=== PATIENT | female | born 1990 | race American Indian/Alaskan Native ===

== ENCOUNTER 2016-06-24 22:26 | Emergency (ER) | payer MEDICAID, OTHER ==
[2016-06-25] MEDS ORDERED: BENADRYL IV ONE (01:04)
[2016-06-25] MEDS ORDERED: REGLAN IV ONE (01:04)
[2016-06-25] MEDS ORDERED: NACL 0.9% 1000 ML 1,000 ML IV ONE (01:04)
--- NOTE | 2016-06-25 01:34 | Emergency Department Report ---
ED Headache HPI - General Chief Complaint: Headache Stated Complaint: MIGRAINE Time Seen by Provider: 06/25/16 00:52 Source: patient, RN notes reviewed Exam Limitations: no limitations - History of Present Illness Initial Comments: This is a 26-year-old female that presents with headache 3 days. Patient agrees to history of migraines. Patient stated takes [id number] Excedrin Migraine with relief but this time there is no relief. Patient denies emesis. Patient denies nausea. Patient denies stiff neck. Patient denies fever or chills. Patient denies any head trauma. Patient describes it as pressure and throbbing in her frontal lobe. Patient rates pain a 9 out of 10. Patient stated that the lights makes the headache worse. Patient agrees to darkness relieving her headache. Patient stated is a gradual onset of headache. Denies thunderclap headache. Denies visual changes. Patient denies any drug allergies. Patient denies any past medical history. Quality: severe Head Injury Location: frontal Recent Head Trauma: chronic headaches Modifying Factors: improves with: exposure to light Associated Symptoms: denies symptoms. denies: confusion, fatigue, facial pain, fever/chills, flushing, loss of consciousness, nausea/vomiting, nasal congestion , nasal drainage, numbness in legs/feet, rash, seizures, sinus infection, stiff neck, vision changes, weakness Allergies/Adverse Reactions: Allergies No Known Allergies Allergy (Verified 11/15/13 05:59) Home Medications: Ambulatory Orders Ibuprofen [Motrin 800 MG tab] 800 mg PO Q8HR PRN #30 tablet 07/11/15 Methylergonovine [Methergine] 0.2 mg PO Q6HR #4 tablet 07/11/15 oxyCODONE /ACETAMINOPHEN [Percocet 5/325 mg] 1 - 2 tab PO Q4HR PRN #15 tablet Ibuprofen [Motrin 600 MG tab] 600 mg PO Q8H PRN 5 Days 06/25/16 ED Review of Systems ROS: Stated complaint: MIGRAINE Other details as noted in HPI Constitutional: denies: chills, fever Eyes: denies: eye pain, eye discharge, vision change ENT: denies: ear pain, throat pain Respiratory: denies: cough, shortness of breath, wheezing Cardiovascular: denies: chest pain, palpitations Endocrine: no symptoms reported Gastrointestinal: denies: abdominal pain, nausea, diarrhea Genitourinary: denies: urgency, dysuria, discharge Musculoskeletal: denies: back pain, joint swelling, arthralgia Skin: denies: rash, lesions Neurological: denies: headache, weakness, paresthesias Psychiatric: denies: anxiety, depression Hematological/Lymphatic: denies: easy bleeding, easy bruising ED Past Medical Hx - Past Medical History Previous Medical History?: Yes Hx Hypertension: No Hx Heart Attack/AMI: No Hx Liver Disease: No Hx Renal Disease: No Hx Headaches / Migraines: Yes Hx Seizures: No Hx Asthma: Yes (prn inhaler) Additional medical history: ANEMIA - Surgical History Past Surgical History?: Yes - Social History Smoking Status: Never Smoker Substance Use Type: None - Medications Home Medications: Home Medications Medication Instructions Recorded Confirmed Last Taken Type Ibuprofen [Motrin 800 MG tab] 800 mg PO Q8HR PRN #30 tablet 07/11/15 Unknown Rx Methylergonovine [Methergine] 0.2 mg PO Q6HR #4 tablet 07/11/15 Unknown Rx oxyCODONE /ACETAMINOPHEN [Percocet 1 - 2 tab PO Q4HR PRN #15 tablet 07/11/15 Unknown Rx 5/325 mg] Ibuprofen [Motrin 600 MG tab] 600 mg PO Q8H PRN 5 Days 06/25/16 Unknown Rx ED Physical Exam - General Limitations: No Limitations General appearance: alert, in no apparent distress - Head Head exam: Present: atraumatic, normocephalic - Eye Eye exam: Present: normal appearance, PERRL, EOMI Pupils: Present: normal accommodation - ENT ENT exam: Present: normal exam, normal orophraynx, mucous membranes moist, TM's normal bilaterally - Neck Neck exam: Present: normal inspection, full ROM. Absent: tenderness, lymphadenopathy - Respiratory Respiratory exam: Present: normal lung sounds bilaterally. Absent: respiratory distress, wheezes, rales, rhonchi, stridor - Cardiovascular Cardiovascular Exam: Present: regular rate, normal rhythm. Absent: systolic murmur, diastolic murmur, rubs, gallop - GI/Abdominal GI/Abdominal exam: Present: soft, normal bowel sounds. Absent: distended, tenderness, guarding, rebound, rigid - Extremities Exam Extremities exam: Present: normal inspection, full ROM, normal capillary refill. Absent: tenderness, pedal edema - Back Exam Back exam: Present: normal inspection, full ROM. Absent: tenderness, CVA tenderness (R), CVA tenderness (L) - Neurological Exam Neurological exam: Present: alert, oriented X3, CN II-XII intact, normal gait - Psychiatric Psychiatric exam: Present: normal affect, normal mood - Skin Skin exam: Present: warm, dry, intact, normal color. Absent: rash ED Course Vital Signs 06/24/16 22:58 Temperature 98.7 F Pulse Rate 91 H Respiratory 18 Rate Blood Pressure 144/101 O2 Sat by Pulse 100 Oximetry - Reevaluation(s) Reevaluation #1: 06/25/16 02:23 Patient stated her headache has subsided. Patient currently states her pain is a 0 out of 10 after medication prescribed. ED Medical Decision Making - Medical Decision Making Ed course: 26-year-old female presents with migraine headaches 1- patient received normal saline 1000 mL IV 2- patient received Reglan 10 mg and Benadryl 25 mg IV 3- I instructed the patient to follow-up with her primary care doctor/ neurologist in 3-5 days 4- I instructed if symptoms worsen such as nausea or vomiting, thunderclap headache, worsening of headache, vision changes, loss of consciousness, or worsening of the headache to report back to emergency room. 5- at the time of discharge the patient does not seem toxic or ill in appearance. Patient agrees to treatment plan and discharge plan. No further questions noted by the patient. 6- patient received a Proventil 600 mg at a time of discharge. Critical care attestation.: If time is entered above; I have spent that time in minutes in the direct care of this critically ill patient, excluding procedure time. ED Disposition Clinical Impression: Migraine Qualifiers: Migraine type: unspecified Status migrainosus presence: without status migrainosus Intractability: not intractable Qualified Code(s): G43.909 - Migraine, unspecified, not intractable, without status migrainosus Disposition: DISCHARGED TO HOME OR SELFCARE Is pt being admited?: No Does the pt Need Aspirin: No Condition: Stable Instructions: Ibuprofen (By mouth), Migraine Headache (ED) Additional Instructions: Follow-up with her primary care doctor/neurologist in 3-5 days if symptoms worsen such as nausea or vomiting, thunderclap headache, worsening of headache, vision changes, loss of consciousness, or worsening of the headache to report back to emergency room. Take ibuprofen 600 mg as prescribed as needed Prescriptions: Ibuprofen [Motrin 600 MG tab] 600 mg PO Q8H PRN 5 Days PRN Reason: Pain Referrals: REN ARMENTA MD [Primary Care Provider] - 3-5 Days [facility] [Outside] - 3-5 Days [facility] [Outside] - 3-5 Days Forms: Work/School Release Form(ED)
[2016-06-25 02:34] VITALS: BP 114/81
== END 2016-06-25 02:35 | disposition home or self-care (01) ==
LOC: ED 22:26
DX: G43.909 Migraine, unspecified, not intractable, without status migrainosus (principal); J45.909 Unspecified asthma, uncomplicated
CPT/HCPCS: 96361; 96374; 96375; 99282; J1200; J2765; J7030

== ENCOUNTER 2020-04-17 20:36 | Outpatient (CLI) | payer OTHER, MEDICAID ==
[2020-04-17] MEDS ORDERED: LACTATED RINGERS 1,000 ML IV ONE (21:24)
[2020-04-17 21:48] LABS: Bilirubin,Urine NEG (Negative); Blood,Urine NEG (Negative); Calcium Oxalate Crystals,Urine 1+; Color,Urine Yellow (Yellow); Mucus,Urine 1+ /HPF; Protein,Urine <15 mg/dL mg/dL (Negative)
[2020-04-17 23:14] VITALS: BP 133/73
== END 2020-04-17 23:35 | disposition home or self-care (01) ==
LOC: TRG 20:36 → APU 20:38 → TRG 23:35
PROVIDERS: ATTEND Obstetrics & Gynecology
DX: O26.892 Other specified pregnancy related conditions, second trimester (principal); Z3A.34 34 weeks gestation of pregnancy
CPT/HCPCS: 36415; 59025; 81001; 82731

== ENCOUNTER 2020-04-19 17:42 | Outpatient (CLI) | payer OTHER, MEDICAID ==
[2020-04-19 18:19] VITALS: BP 139/69
[2020-04-19 20:00] LABS: Bilirubin,Urine NEG (Negative); Blood,Urine NEG (Negative); Calcium Oxalate Crystals,Urine FEW; Color,Urine Yellow (Yellow); Mucus,Urine 3+ /HPF; Urobilinogen,Urine < 2.0 mg/dL (<2.0)
--- NOTE | 2020-04-19 20:05 | Ultrasound Report ---
Limited OB ultrasound INDICATION: , evaluate cervix length FINDINGS: Limited imaging was performed to evaluate cervical length. Cervix measures approximately 3.8 cm. IMPRESSION: Cervix measures approximately 3.8 cm. Signer Name: Finesse Valenzuela MD Signed: 04/19/2020 8:01 PM Workstation Name: [id number]
[2020-04-19] MEDS ORDERED: LACTATED RINGERS 1,000 ML IV ONE (20:12)
== END 2020-04-19 20:35 | disposition home or self-care (01) ==
LOC: TRG 17:42 → APU 17:43 → TRG 20:35
PROVIDERS: ATTEND Obstetrics & Gynecology
DX: O47.02 False labor before 37 completed weeks of gestation, second trimester (principal); Z3A.24 24 weeks gestation of pregnancy
CPT/HCPCS: 59025; 76815; 81001; 87086; Q0177

== ENCOUNTER 2020-06-25 18:10 | Outpatient (CLI) | payer OTHER, MEDICAID ==
[2020-06-25 20:54] VITALS: BP 130/71
--- NOTE | 2020-06-25 21:24 | Ultrasound Report ---
ULTRASOUND BIOPHYSICAL PROFILE INDICATION / CLINICAL INFORMATION: bpp. Clinical Gestational Age (GA): 33.6 weeks.days COMPARISON: 04/19/2020 FINDINGS: BREATHING MOVEMENT = 2 GROSS BODY MOVEMENT = 2 TONE = 2 QUALITATIVE AMNIOTIC FLUID VOLUME = 2 TOTAL BIOPHYSICAL SCORE = 8/8 HEART RATE (beats per minute): 132 AMNIOTIC FLUID: Subjectively normal. PRESENTATION: Cephalic. ADDITIONAL FINDINGS: None. IMPRESSION: 1. Biophysical Score = 8/8 Signer Name: J Luis Shaw MD Signed: 06/25/2020 9:20 PM Workstation Name: [id number]
== END 2020-06-25 21:25 | disposition home or self-care (01) ==
LOC: TRG 18:10 → APU 18:10 → TRG 21:25
PROVIDERS: ATTEND Obstetrics & Gynecology
DX: Z34.93 Encounter for supervision of normal pregnancy, unspecified, third trimester (principal); Z3A.33 33 weeks gestation of pregnancy
CPT/HCPCS: 59025; 76819

== ENCOUNTER 2020-06-28 13:41 | Inpatient (IN) | payer OTHER, MEDICAID ==
[2020-06-28] MEDS ORDERED: diphenhydrAMINE 25 MG CAP PO PRN (14:15)
[2020-06-28] MEDS ORDERED: WITCH HAZEL/ GLYCERIN PAD TP PRN (14:15)
[2020-06-28] MEDS ORDERED: DOCUSATE SODIUM 100 MG CAP PO PRN (14:15)
[2020-06-28] MEDS ORDERED: ACETAMINOPHEN 325 MG TAB PO PRN (14:15)
[2020-06-28] MEDS ORDERED: LACTATED RINGERS 1,000 ML IV SCH (14:15)
[2020-06-28] MEDS ORDERED: MAGNESIUM SULFATE 4 GM/100 ML BAG IV ONE (14:15)
[2020-06-28] MEDS ORDERED: ONDANSETRON 4 MG/2 ML INJ IV PRN (14:15)
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
[2020-06-28] MEDS: BETAMET ACET/BETAMET NA PH 6 MG/ML INJ 5 ML MDV IM SCH (14:56)
[2020-06-28] MEDS ORDERED: MAGNESIUM SULFATE 40GM/1000ML 40 GM/1,000 ML BAG IV SCH (15:00)
[2020-06-28 17:58] LABS: Basophils % (Auto) 0.4 % (0.0-1.8); Eosinophils % (Auto) 0.3 % (0.0-4.3); Hematocrit 30.2 % (30.3-42.9); Hemoglobin 9.8 gm/dl (10.1-14.3); Lymphocytes # (Auto) 1.6 K/mm3 (1.2-5.4); Lymphocytes % (Auto) 14.5 % (13.4-35.0); Mean Corpuscular HGB Conc 32 % (30-34); Mean Corpuscular Volume 75 fl (79-97); Monocytes # (Auto) 0.6 K/mm3 (0.0-0.8); Monocytes % (Auto) 5.5 % (0.0-7.3); Platelet Count 122 K/mm3 (140-440); Red Blood Count 4.02 M/mm3 (3.65-5.03)
[2020-06-28 18:19] LABS: Bacteria,Urine 1+ /HPF (Negative); Bilirubin,Urine NEG (Negative); Blood,Urine NEG (Negative); Color,Urine Yellow (Yellow); Mucus,Urine FEW /HPF; Protein,Urine <15 mg/dL mg/dL (Negative); Urobilinogen,Urine < 2.0 mg/dL (<2.0)
[2020-06-28 18:23] LABS: Alanine Aminotransferase 12 units/L (7-56); Alanine Aminotransferase 13 units/L (7-56); Albumin 3.7 g/dL (3.9-5); Blood Urea Nitrogen 4 mg/dL (7-17); Calcium 9.1 mg/dL (8.4-10.2); Hemolysis Index 63; Uric Acid 3.5 mg/dL (3.5-7.6)
[2020-06-28 18:33] LABS: BUN/Creatinine Ratio 10
[2020-06-29] MEDS: LACTATED RINGERS 1,000 ML IV SCH ×3 (03:38→22:08)
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
[2020-06-29] MEDS: PRENATAL VIT27-FE FUMARATE-FOLIC ACID VIT TAB PO SCH (09:20)
[2020-06-29] MEDS: BETAMET ACET/BETAMET NA PH 6 MG/ML INJ 5 ML MDV IM SCH (14:59)
--- NOTE | 2020-06-30 08:54 | Progress Note ---
Subjective - Subjective Date of service: 06/30/20 Principal diagnosis: IUP@34w4d; gestational hypertension; MGSO4 off; BMZ given x2 doses Interval history: Pt is without complaints. Denies SAMAYOA,vision changes, and pain. [facility] desires discharge home. Patient reports: movement normal, no new complaints, no loss of fluid, no vaginal bleeding, no contractions Objective - Vital Signs Vital Signs: Vital Signs - 12hr 06/29/20 06/29/20 06/29/20 20:52 20:54 20:59 Temperature Pulse Rate 107 H 111 H 114 H Respiratory Rate Blood Pressure Blood Pressure [Right] O2 Sat by Pulse 89 98 98 Oximetry 06/29/20 06/29/20 06/29/20 21:01 21:04 21:09 Temperature Pulse Rate 107 H 108 H 104 H Respiratory Rate Blood Pressure 135/74 Blood Pressure [Right] O2 Sat by Pulse 97 96 Oximetry 06/29/20 06/29/20 06/29/20 21:15 21:20 21:25 Temperature Pulse Rate 104 H 102 H 102 H Respiratory Rate Blood Pressure Blood Pressure [Right] O2 Sat by Pulse 93 97 96 Oximetry 06/29/20 06/29/20 06/29/20 21:27 21:30 21:31 Temperature Pulse Rate 103 H 111 H 110 H Respiratory Rate Blood Pressure 120/64 Blood Pressure [Right] O2 Sat by Pulse 94 96 Oximetry 06/29/20 06/29/20 06/29/20 21:35 21:36 21:40 Temperature Pulse Rate 113 H 110 H 109 H Respiratory Rate Blood Pressure Blood Pressure [Right] O2 Sat by Pulse 96 93 95 Oximetry 06/29/20 06/29/20 06/29/20 21:41 21:45 21:50 Temperature Pulse Rate 109 H 109 H 105 H Respiratory Rate Blood Pressure Blood Pressure [Right] O2 Sat by Pulse 94 94 94 Oximetry 06/29/20 06/29/20 06/29/20 21:55 22:00 22:01 Temperature Pulse Rate 108 H 106 H 105 H Respiratory Rate Blood Pressure 139/66 Blood Pressure [Right] O2 Sat by Pulse 96 95 Oximetry 06/29/20 06/29/20 06/29/20 22:02 22:05 22:08 Temperature Pulse Rate 112 H 110 H 105 H Respiratory Rate Blood Pressure Blood Pressure [Right] O2 Sat by Pulse 92 96 94 Oximetry 06/29/20 06/29/20 06/29/20 22:10 22:15 22:16 Temperature Pulse Rate 100 H 100 H 103 H Respiratory Rate Blood Pressure Blood Pressure [Right] O2 Sat by Pulse 94 95 89 Oximetry 06/29/20 06/29/20 06/29/20 22:20 22:24 22:25 Temperature Pulse Rate 100 H 102 H 99 H Respiratory Rate Blood Pressure Blood Pressure [Right] O2 Sat by Pulse 95 94 95 Oximetry 06/29/20 06/29/20 06/29/20 22:30 22:31 22:35 Temperature Pulse Rate 103 H 103 H 102 H Respiratory Rate Blood Pressure 117/57 Blood Pressure [Right] O2 Sat by Pulse 95 94 95 Oximetry 06/29/20 06/29/20 06/29/20 22:37 22:40 22:45 Temperature Pulse Rate 107 H 104 H 105 H Respiratory Rate Blood Pressure Blood Pressure [Right] O2 Sat by Pulse 94 96 96 Oximetry 06/29/20 06/29/20 06/29/20 22:50 22:55 22:56 Temperature Pulse Rate 107 H 103 H 102 H Respiratory Rate Blood Pressure Blood Pressure [Right] O2 Sat by Pulse 90 95 94 Oximetry 06/29/20 06/29/20 06/29/20 23:00 23:01 23:02 Temperature Pulse Rate 103 H 101 H 99 H Respiratory Rate Blood Pressure 116/56 Blood Pressure [Right] O2 Sat by Pulse 94 94 Oximetry 06/29/20 06/29/20 06/29/20 23:05 23:08 23:10 Temperature Pulse Rate 98 H 103 H 102 H Respiratory Rate Blood Pressure Blood Pressure [Right] O2 Sat by Pulse 96 93 94 Oximetry 06/29/20 06/29/20 06/29/20 23:15 23:20 23:22 Temperature Pulse Rate 105 H 103 H 103 H Respiratory Rate Blood Pressure Blood Pressure [Right] O2 Sat by Pulse 93 94 94 Oximetry 06/29/20 06/29/20 06/29/20 23:25 23:28 23:30 Temperature Pulse Rate 101 H 101 H 99 H Respiratory Rate Blood Pressure Blood Pressure [Right] O2 Sat by Pulse 95 94 94 Oximetry 06/29/20 06/29/20 06/29/20 23:31 23:33 23:35 Temperature Pulse Rate 101 H 101 H 101 H Respiratory Rate Blood Pressure 122/58 Blood Pressure [Right] O2 Sat by Pulse 94 94 Oximetry 06/29/20 06/29/20 06/29/20 23:40 23:45 23:47 Temperature Pulse Rate 102 H 102 H 104 H Respiratory Rate Blood Pressure Blood Pressure [Right] O2 Sat by Pulse 95 94 94 Oximetry 06/29/20 06/29/20 06/30/20 23:50 23:55 00:00 Temperature Pulse Rate 98 H 103 H 101 H Respiratory Rate Blood Pressure 113/53 Blood Pressure [Right] O2 Sat by Pulse 95 95 96 Oximetry 06/30/20 06/30/20 06/30/20 00:01 00:05 00:10 Temperature Pulse Rate 98 H 96 H 100 H Respiratory Rate Blood Pressure Blood Pressure [Right] O2 Sat by Pulse 94 96 96 Oximetry 06/30/20 06/30/20 06/30/20 00:12 00:15 00:20 Temperature Pulse Rate 100 H 97 H 99 H Respiratory Rate Blood Pressure Blood Pressure [Right] O2 Sat by Pulse 94 95 95 Oximetry 06/30/20 06/30/20 06/30/20 00:25 00:30 00:35 Temperature Pulse Rate 97 H 98 H 99 H Respiratory Rate Blood Pressure 116/56 Blood Pressure [Right] O2 Sat by Pulse 95 95 96 Oximetry 06/30/20 06/30/20 06/30/20 00:40 00:45 00:47 Temperature Pulse Rate 97 H 100 H 99 H Respiratory Rate Blood Pressure Blood Pressure [Right] O2 Sat by Pulse 95 95 93 Oximetry 06/30/20 06/30/20 06/30/20 00:50 00:54 00:55 Temperature Pulse Rate 96 H 94 H 96 H Respiratory Rate Blood Pressure Blood Pressure [Right] O2 Sat by Pulse 95 94 95 Oximetry 06/30/20 06/30/20 06/30/20 01:00 01:02 01:05 Temperature Pulse Rate 95 H 92 H 96 H Respiratory Rate Blood Pressure 111/53 Blood Pressure [Right] O2 Sat by Pulse 96 95 Oximetry 06/30/20 06/30/20 06/30/20 01:10 01:15 01:17 Temperature Pulse Rate 95 H 98 H 96 H Respiratory Rate Blood Pressure Blood Pressure [Right] O2 Sat by Pulse 95 95 94 Oximetry 06/30/20 06/30/20 06/30/20 01:20 01:25 01:30 Temperature Pulse Rate 99 H 98 H 97 H Respiratory Rate Blood Pressure 111/54 Blood Pressure [Right] O2 Sat by Pulse 95 95 94 Oximetry 06/30/20 06/30/20 06/30/20 01:35 01:40 01:44 Temperature Pulse Rate 91 H 93 H 94 H Respiratory Rate Blood Pressure Blood Pressure [Right] O2 Sat by Pulse 94 96 94 Oximetry 06/30/20 06/30/20 06/30/20 01:45 01:50 01:55 Temperature Pulse Rate 94 H 97 H 87 Respiratory Rate Blood Pressure Blood Pressure [Right] O2 Sat by Pulse 94 94 94 Oximetry 06/30/20 06/30/20 06/30/20 01:56 02:00 02:05 Temperature Pulse Rate 85 96 H 98 H Respiratory Rate Blood Pressure 99/48 Blood Pressure [Right] O2 Sat by Pulse 94 96 96 Oximetry 06/30/20 06/30/20 06/30/20 02:10 02:15 02:20 Temperature Pulse Rate 90 90 91 H Respiratory Rate Blood Pressure Blood Pressure [Right] O2 Sat by Pulse 98 98 98 Oximetry 06/30/20 06/30/20 06/30/20 02:25 02:30 02:31 Temperature Pulse Rate 91 H 90 92 H Respiratory Rate Blood Pressure 97/51 Blood Pressure [Right] O2 Sat by Pulse 98 98 Oximetry 06/30/20 06/30/20 06/30/20 02:35 02:40 02:45 Temperature Pulse Rate 90 88 89 Respiratory Rate Blood Pressure Blood Pressure [Right] O2 Sat by Pulse 96 96 96 Oximetry 06/30/20 06/30/20 06/30/20 02:50 02:52 02:55 Temperature Pulse Rate 98 H 95 H 96 H Respiratory Rate Blood Pressure Blood Pressure [Right] O2 Sat by Pulse 95 94 97 Oximetry 06/30/20 06/30/20 06/30/20 02:58 03:00 03:05 Temperature Pulse Rate 95 H 95 H 95 H Respiratory Rate Blood Pressure 107/63 Blood Pressure [Right] O2 Sat by Pulse 94 98 96 Oximetry 06/30/20 06/30/20 06/30/20 03:10 03:15 03:20 Temperature Pulse Rate 96 H 92 H 90 Respiratory Rate Blood Pressure Blood Pressure [Right] O2 Sat by Pulse 95 96 96 Oximetry 06/30/20 06/30/20 06/30/20 03:24 03:25 03:30 Temperature Pulse Rate 105 H 90 90 Respiratory Rate Blood Pressure Blood Pressure [Right] O2 Sat by Pulse 94 97 97 Oximetry 06/30/20 06/30/20 06/30/20 03:31 03:35 03:40 Temperature Pulse Rate 88 88 88 Respiratory Rate Blood Pressure 80/41 Blood Pressure [Right] O2 Sat by Pulse 97 96 Oximetry 06/30/20 06/30/20 06/30/20 03:52 04:00 04:30 Temperature Pulse Rate 97 H 91 H 90 Respiratory Rate Blood Pressure 124/61 120/56 115/58 Blood Pressure [Right] O2 Sat by Pulse Oximetry 06/30/20 06/30/20 06/30/20 05:00 05:30 06:00 Temperature Pulse Rate 95 H 96 H 97 H Respiratory Rate Blood Pressure 116/56 120/56 114/58 Blood Pressure [Right] O2 Sat by Pulse Oximetry 06/30/20 06/30/20 06/30/20 06:31 07:00 07:13 Temperature Pulse Rate 98 H 88 96 H Respiratory Rate Blood Pressure 113/55 121/57 115/56 Blood Pressure [Right] O2 Sat by Pulse Oximetry 06/30/20 06/30/20 06/30/20 07:14 07:30 08:00 Temperature 98.1 F Pulse Rate 96 H 89 90 Respiratory 18 Rate Blood Pressure 108/56 103/50 Blood Pressure 115/56 [Right] O2 Sat by Pulse Oximetry 06/30/20 08:32 Temperature Pulse Rate 96 H Respiratory Rate Blood Pressure 103/54 Blood Pressure [Right] O2 Sat by Pulse Oximetry - Exam Lungs: Normal air movement Abdomen: Present: normal appearance, soft Uterus: Present: normal FHR: auscultation normal Uterine Contraction Monitor Mode: External Extremities: normal - Labs Labs: Abnormal Labs 06/28/20 06/28/20 06/28/20 19:50 Unknown Unknown Hgb 9.8 L Hct 30.2 L MCV 75 L MCH 24 L RDW 17.0 H Plt Count 122 L Seg Neutrophils % 79.3 H Seg Neutrophils # 8.7 H Sodium Chloride BUN Creatinine Magnesium 3.00 H Albumin U Epithel Cells (Auto) 20.0 H 06/28/20 06/28/20 06/29/20 Unknown Unknown 02:21 Hgb Hct MCV MCH RDW Plt Count Seg Neutrophils % Seg Neutrophils # Sodium 132 L Chloride 97.3 L BUN 4 L Creatinine 0.4 L 0.4 L Magnesium 3.10 H Albumin 3.7 L U Epithel Cells (Auto) 06/29/20 06/29/20 06/29/20 08:11 15:35 22:34 Hgb Hct MCV MCH RDW Plt Count Seg Neutrophils % Seg Neutrophils # Sodium Chloride BUN Creatinine Magnesium 3.00 H 3.00 H 3.20 H Albumin U Epithel Cells (Auto) Laboratory Results - last 24 hr 06/29/20 06/29/20 15:35 22:34 Magnesium 3.00 H 3.20 H
[2020-06-30] MEDS: PRENATAL VIT27-FE FUMARATE-FOLIC ACID VIT TAB PO SCH (10:56)
[2020-06-30] MEDS: LACTATED RINGERS 1,000 ML IV SCH (11:49)
--- NOTE | 2020-06-30 12:58 | Discharge Summary ---
Providers - Providers Date of Admission: 06/28/20 13:42 Date of discharge: 06/30/20 Attending physician: EVELIA AGUILAR 06/28/20 15:33 Consult to Physician [CONS] Routine Comment: Consulting Provider: SVITLANA RAHMAN Physician Instructions: Reason For Exam: admission to [facility]U; proteinuria; Primary care physician: EVELIA AGUILAR Hospitalization Disposition: DC-01 TO HOME OR SELFCARE Core Measure Documentation - Palliative Care Palliative Care/ Comfort Measures: Not Applicable Exam - Constitutional Vitals: Temp Pulse Resp BP Pulse Ox 98.1 F 91 H 18 110/57 96 06/30/20 07:14 06/30/20 11:11 06/30/20 07:14 06/30/20 11:11 06/30/20 03:40 Plan Follow up with: EVELIA AGUILAR MD [Primary Care Provider] - 7 Days
[2020-06-30 13:55] VITALS: BP 114/56
== END 2020-06-30 13:52 | disposition home or self-care (01) | DRG 833 ==
LOC: TRG 13:41 → LD 13:42 → TRG 15:50
PROVIDERS: ADMIT Obstetrics & Gynecology; ATTEND Obstetrics & Gynecology
DX: O12.13 Gestational proteinuria, third trimester (principal); Z3A.34 34 weeks gestation of pregnancy; O99.513 Diseases of the respiratory system complicating pregnancy, third trimester; O99.353 Diseases of the nervous system complicating pregnancy, third trimester; G43.909 Migraine, unspecified, not intractable, without status migrainosus; O13.3 Gestational [pregnancy-induced] hypertension without significant proteinuria, third trimester; Z20.822 Contact with and (suspected) exposure to COVID-19
CPT/HCPCS: 36415; 59025; 76819; 80053; 81001; 82565; 83735; 84450; 84460; 84550; 85025; 86850; 86900; 86901; 87116; G0378; J0702; J3475; J7120; U0003

== ENCOUNTER 2020-07-17 20:12 | Inpatient (IN) | payer OTHER, MEDICAID ==
[2020-07-17] MEDS ORDERED: LOPERAMIDE 2 MG CAP PO PRN (21:21)
[2020-07-17] MEDS ORDERED: LIDOCAINE (2%) 20 MG/1 ML VIAL 20 ML MDV INFILTRATI ONE (21:21)
[2020-07-17] MEDS ORDERED: DINOPROSTONE 10 MG VAG SUPP VG ONE (21:21)
[2020-07-17] MEDS ORDERED: miSOPROStol 200 MCG TAB PR PRN (21:21)
[2020-07-17] MEDS ORDERED: BUTORPHANOL 2 MG/1 ML INJ IV PRN (21:21)
[2020-07-17] MEDS ORDERED: TERBUTALINE 1 MG/1 ML INJ SUB-Q PRN (21:21)
[2020-07-17] MEDS ORDERED: fentaNYL 100 MCG/2 ML INJ IV PRN (21:21)
[2020-07-17] MEDS ORDERED: METHYLERGONOVINE MALEATE 0.2 MG/ML VIAL IM PRN (21:21)
[2020-07-17] MEDS ORDERED: MINERAL OIL 30 ML ORAL LIQD PO PRN (21:21)
[2020-07-17] MEDS ORDERED: ePHEDrine SULFATE 50 MG/1 ML INJ IV PRN (21:21)
[2020-07-17] MEDS ORDERED: OXYTOCIN 10 UNIT/1 ML INJ IM PRN (21:21)
[2020-07-17] MEDS ORDERED: CARBOPROST TROMETHAMINE 250 MCG/1 ML INJ IM PRN (21:21)
[2020-07-17 21:39] LABS: Hematocrit 29.2 % (30.3-42.9); Hemoglobin 9.5 gm/dl (10.1-14.3); Mean Corpuscular HGB Conc 33 % (30-34); Mean Corpuscular Volume 74 fl (79-97); Platelet Count 118 K/mm3 (140-440); Red Blood Count 3.93 M/mm3 (3.65-5.03); Red Cell Distribution Width 18.1 % (13.2-15.2)
[2020-07-17 21:54] LABS: Alanine Aminotransferase 12 units/L (7-56); Uric Acid 3.9 mg/dL (3.5-7.6)
[2020-07-17] MEDS ORDERED: OXYTOCIN DRIP 30 UNITS/500 ML BAG IV SCH (22:00)
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
[2020-07-17] MEDS: LACTATED RINGERS 1,000 ML IV SCH (22:35)
[2020-07-18 02:57] LABS: Bacteria,Urine 1+ /HPF (Negative); Bilirubin,Urine NEG (Negative); Blood,Urine NEG (Negative); Color,Urine Yellow (Yellow); Mucus,Urine 2+ /HPF; Protein,Urine <15 mg/dL mg/dL (Negative); Urobilinogen,Urine < 2.0 mg/dL (<2.0)
[2020-07-18] MEDS ORDERED: OXYTOCIN DRIP 30,000 MILLIUNITS/500 ML BAG IV ONE (07:22)
--- NOTE | 2020-07-18 07:23 | Progress Note ---
Assessment and Plan A: 30 y.o. @ 37.1 wks, IOL d/t cHTN. Cervical exam unchanged from previous night: 0/0/-3. - Patient Problems (1) 37 weeks gestation of Current Visit: Yes Status: Acute Plan to address problem: Continue to monitor progress of labor. Cervidil removed. Allow pt to shower and eat. Will start Pitocin per protocol after AM care. (2) HTN (hypertension) Current Visit: Yes Status: Acute Qualifiers: Hypertension type: essential hypertension Qualified Code(s): I10 - Essential (primary) hypertension Plan to address problem: Continue to monitor blood pressures during admission. Monitor for s/sx of pre eclampsia. Subjective - Subjective Date of service: 07/18/20 (Cervidil removed) Principal diagnosis: IUP @ 37.1 wks IOL d/t cHTN Patient reports: movement normal, no new complaints, no loss of fluid, no vaginal bleeding, no contractions Objective - Vital Signs Vital Signs: Vital Signs - 12hr 07/17/20 07/17/20 07/17/20 20:54 21:02 22:29 Temperature 98.1 F Pulse Rate 110 H 110 H 99 H Respiratory 12 Rate Blood Pressure 123/68 125/56 Blood Pressure 123/68 [Left] O2 Sat by Pulse Oximetry 07/17/20 07/17/20 07/17/20 22:50 22:55 23:00 Temperature Pulse Rate 98 H 98 H 98 H Respiratory Rate Blood Pressure Blood Pressure [Left] O2 Sat by Pulse 100 99 99 Oximetry 07/17/20 07/17/20 07/17/20 23:05 23:10 23:15 Temperature Pulse Rate 96 H 97 H 99 H Respiratory Rate Blood Pressure Blood Pressure [Left] O2 Sat by Pulse 99 100 100 Oximetry 07/17/20 07/17/20 07/17/20 23:20 23:25 23:29 Temperature Pulse Rate 96 H 96 H 100 H Respiratory Rate Blood Pressure 116/58 Blood Pressure [Left] O2 Sat by Pulse 98 100 Oximetry 07/17/20 07/17/20 07/17/20 23:30 23:35 23:40 Temperature Pulse Rate 97 H 98 H 96 H Respiratory Rate Blood Pressure Blood Pressure [Left] O2 Sat by Pulse 99 99 99 Oximetry 07/17/20 07/17/20 07/17/20 23:42 23:44 23:45 Temperature 98.2 F Pulse Rate 92 H 93 H Respiratory Rate Blood Pressure 115/60 Blood Pressure [Left] O2 Sat by Pulse 99 Oximetry 07/17/20 07/17/20 07/18/20 23:50 23:55 00:00 Temperature Pulse Rate 94 H 98 H 97 H Respiratory Rate Blood Pressure Blood Pressure [Left] O2 Sat by Pulse 99 99 100 Oximetry 07/18/20 07/18/20 07/18/20 00:05 00:10 00:15 Temperature Pulse Rate 95 H 97 H 97 H Respiratory Rate Blood Pressure Blood Pressure [Left] O2 Sat by Pulse 99 100 100 Oximetry 07/18/20 07/18/20 07/18/20 00:20 00:25 00:29 Temperature Pulse Rate 95 H 96 H 97 H Respiratory Rate Blood Pressure 132/63 Blood Pressure [Left] O2 Sat by Pulse 100 99 Oximetry 07/18/20 07/18/20 07/18/20 00:30 00:35 00:40 Temperature Pulse Rate 91 H 98 H 95 H Respiratory Rate Blood Pressure Blood Pressure [Left] O2 Sat by Pulse 99 99 99 Oximetry 07/18/20 07/18/20 07/18/20 00:45 00:50 00:55 Temperature Pulse Rate 95 H 94 H 93 H Respiratory Rate Blood Pressure Blood Pressure [Left] O2 Sat by Pulse 99 99 99 Oximetry 07/18/20 07/18/20 07/18/20 01:00 01:05 01:10 Temperature Pulse Rate 92 H 92 H 95 H Respiratory Rate Blood Pressure Blood Pressure [Left] O2 Sat by Pulse 99 99 99 Oximetry 07/18/20 07/18/20 07/18/20 01:15 01:20 01:25 Temperature Pulse Rate 95 H 96 H 89 Respiratory Rate Blood Pressure Blood Pressure [Left] O2 Sat by Pulse 99 100 99 Oximetry 07/18/20 07/18/20 07/18/20 01:29 01:30 01:35 Temperature Pulse Rate 92 H 90 88 Respiratory Rate Blood Pressure 104/50 Blood Pressure [Left] O2 Sat by Pulse 99 99 Oximetry 07/18/20 07/18/20 07/18/20 01:40 01:45 01:50 Temperature Pulse Rate 90 90 89 Respiratory Rate Blood Pressure Blood Pressure [Left] O2 Sat by Pulse 100 100 99 Oximetry 07/18/20 07/18/20 07/18/20 01:55 02:00 02:05 Temperature Pulse Rate 95 H 100 H 102 H Respiratory Rate Blood Pressure Blood Pressure [Left] O2 Sat by Pulse 100 100 100 Oximetry 07/18/20 07/18/20 07/18/20 02:10 02:15 02:20 Temperature Pulse Rate 105 H 101 H 103 H Respiratory Rate Blood Pressure Blood Pressure [Left] O2 Sat by Pulse 100 100 100 Oximetry 07/18/20 07/18/20 07/18/20 02:25 02:29 02:30 Temperature Pulse Rate 110 H 100 H 109 H Respiratory Rate Blood Pressure 123/58 Blood Pressure [Left] O2 Sat by Pulse 100 100 Oximetry 07/18/20 07/18/20 07/18/20 04:33 04:35 07:00 Temperature 98.1 F 98.0 F Pulse Rate 88 95 H Respiratory 18 16 Rate Blood Pressure 130/58 Blood Pressure 119/63 [Left] O2 Sat by Pulse Oximetry 07/18/20 07:05 Temperature Pulse Rate 95 H Respiratory Rate Blood Pressure 119/63 Blood Pressure [Left] O2 Sat by Pulse Oximetry - Exam Narrative Exam: Pt doing well. Explained plan of care for the day. Cervical exam unchanged from last night. Will remove Cervidil and allow pt to eat, shower, and then start Pitocin per protocol. Pt denies blurred vision, spots before her eyes, chest pain, shortness of breath, and upper abdominal pain. Breasts: deferred Cardiovascular: Regular rate Lungs: Normal air movement Abdomen: Present: normal appearance, soft Vulva: both: normal Uterus: Present: normal FHR: category 1 Uterine Contraction Monitor Mode: External Cervical Dilatation: 0 Cervical Effacement Percentage: 0 station: -3 Uterine Contraction Pattern: Irregular Uterine Tone Measurement Phase: Resting Uterine Contraction Intensity: Mild Extremities: normal Deep Tendon Reflex Grade: Normal +2 - Labs Labs: Abnormal Labs 07/17/20 07/17/20 21:15 21:15 Hgb 9.5 L Hct 29.2 L MCV 74 L MCH 24 L RDW 18.1 H Plt Count 118 L Lactate Dehydrogenase 182 H Laboratory Results - last 24 hr 07/17/20 07/17/20 07/17/20 21:15 21:15 21:15 WBC 7.4 RBC 3.93 Hgb 9.5 L Hct 29.2 L MCV 74 L MCH 24 L MCHC 33 RDW 18.1 H Plt Count 118 L Creatinine Estimated GFR Uric Acid AST ALT Lactate Dehydrogenase Urine Color Urine Turbidity Urine pH Ur Specific Regan Urine Protein Urine Glucose (UA) Urine Ketones Urine Blood Urine Nitrite Urine Bilirubin Urine Urobilinogen Ur Leukocyte Esterase Urine WBC (Auto) Urine RBC (Auto) U Epithel Cells (Auto) Urine Bacteria (Auto) Urine Mucus Syphilis IgG Antibody Nonreactive Blood Type B POSITIVE Antibody Screen Negative 07/17/20 07/17/20 21:15 Unknown WBC RBC Hgb Hct MCV MCH MCHC RDW Plt Count Creatinine 0.6 Estimated GFR > 60 Uric Acid 3.9 AST 16 ALT 12 Lactate Dehydrogenase 182 H Urine Color Yellow Urine Turbidity Slightly-cloudy Urine pH 6.0 Ur Specific Regan 1.024 Urine Protein <15 mg/dl Urine Glucose (UA) Neg Urine Ketones Tr Urine Blood Neg Urine Nitrite Neg Urine Bilirubin Neg Urine Urobilinogen < 2.0 Ur Leukocyte Esterase Neg Urine WBC (Auto) 5.0 Urine RBC (Auto) 6.0 U Epithel Cells (Auto) 4.0 Urine Bacteria (Auto) 1+ Urine Mucus 2+ Syphilis IgG Antibody Blood Type Antibody Screen
[2020-07-18] MEDS: LACTATED RINGERS 1,000 ML IV SCH (10:30)
--- NOTE | 2020-07-18 16:59 | Progress Note ---
Assessment and Plan A: 30 y.o. @ 37.1 wks, IOL d/t cHTN. Proteinuria vs. superimposed pre eclampsia. Cervical exam: 0/0/-4. - Patient Problems (1) 37 weeks gestation of Current Visit: Yes Status: Acute Plan to address problem: Continue to monitor status through EFM. (2) HTN (hypertension) Current Visit: Yes Status: Acute Qualifiers: Hypertension type: essential hypertension Qualified Code(s): I10 - Essential (primary) hypertension Plan to address problem: Continue to monitor for s/sx of pre eclampsia. Turn off Pitocin. Allow pt to eat dinner. Cervidil to be placed to continue IOL after patient eats dinner. (3) Thrombocytopenia Current Visit: Yes Status: Acute Plan to address problem: Will continue to monitor platelet count during admission. Current platelet count 118. Subjective - Subjective Date of service: 07/18/20 (Pt not feeling ctxs) Principal diagnosis: IUP @ 37.1 wks IOL d/t cHTN, proteinuria vs superimposed pre eclampsia. Patient reports: movement normal, no new complaints, no loss of fluid, no vaginal bleeding, no contractions Objective - Vital Signs Vital Signs: Vital Signs - 12hr 07/18/20 07/18/20 07/18/20 07:00 07:05 09:58 Temperature 98.0 F Pulse Rate 95 H 95 H 96 H Respiratory 16 Rate Blood Pressure 119/63 Blood Pressure 119/63 [Left] O2 Sat by Pulse 99 Oximetry 07/18/20 07/18/20 07/18/20 10:03 10:08 10:13 Temperature Pulse Rate 99 H 104 H 95 H Respiratory Rate Blood Pressure Blood Pressure [Left] O2 Sat by Pulse 100 100 100 Oximetry 07/18/20 07/18/20 07/18/20 10:18 10:23 10:28 Temperature Pulse Rate 108 H 105 H 100 H Respiratory Rate Blood Pressure Blood Pressure [Left] O2 Sat by Pulse 100 99 99 Oximetry 07/18/20 07/18/20 07/18/20 10:33 10:38 10:43 Temperature Pulse Rate 102 H 96 H 95 H Respiratory Rate Blood Pressure Blood Pressure [Left] O2 Sat by Pulse 100 99 99 Oximetry 07/18/20 07/18/20 07/18/20 10:48 10:53 10:58 Temperature Pulse Rate 96 H 95 H 97 H Respiratory Rate Blood Pressure Blood Pressure [Left] O2 Sat by Pulse 99 99 98 Oximetry 07/18/20 07/18/20 07/18/20 11:03 11:08 11:13 Temperature Pulse Rate 98 H 100 H 97 H Respiratory Rate Blood Pressure Blood Pressure [Left] O2 Sat by Pulse 98 99 100 Oximetry 07/18/20 07/18/20 07/18/20 11:18 11:23 11:28 Temperature Pulse Rate 111 H 98 H 99 H Respiratory Rate Blood Pressure Blood Pressure [Left] O2 Sat by Pulse 100 98 99 Oximetry 07/18/20 07/18/20 07/18/20 11:33 11:36 11:38 Temperature Pulse Rate 103 H 107 H 101 H Respiratory Rate Blood Pressure 123/55 Blood Pressure [Left] O2 Sat by Pulse 100 100 Oximetry 07/18/20 07/18/20 07/18/20 11:43 11:48 11:53 Temperature Pulse Rate 96 H 102 H 98 H Respiratory Rate Blood Pressure Blood Pressure [Left] O2 Sat by Pulse 98 99 99 Oximetry 07/18/20 07/18/20 07/18/20 11:58 12:03 12:08 Temperature Pulse Rate 100 H 95 H 98 H Respiratory Rate Blood Pressure Blood Pressure [Left] O2 Sat by Pulse 99 98 98 Oximetry 07/18/20 07/18/20 07/18/20 12:13 12:18 12:23 Temperature Pulse Rate 110 H 106 H 97 H Respiratory Rate Blood Pressure Blood Pressure [Left] O2 Sat by Pulse 100 99 100 Oximetry 07/18/20 07/18/20 07/18/20 12:28 12:33 12:36 Temperature Pulse Rate 101 H 96 H 96 H Respiratory Rate Blood Pressure 114/52 Blood Pressure [Left] O2 Sat by Pulse 100 99 Oximetry 07/18/20 07/18/20 07/18/20 12:38 12:43 12:48 Temperature Pulse Rate 95 H 95 H 97 H Respiratory Rate Blood Pressure Blood Pressure [Left] O2 Sat by Pulse 98 100 100 Oximetry 07/18/20 07/18/20 07/18/20 12:53 12:58 13:03 Temperature Pulse Rate 91 H 100 H 109 H Respiratory Rate Blood Pressure Blood Pressure [Left] O2 Sat by Pulse 99 99 100 Oximetry 07/18/20 07/18/20 07/18/20 13:08 13:13 13:18 Temperature Pulse Rate 99 H 98 H 101 H Respiratory Rate Blood Pressure Blood Pressure [Left] O2 Sat by Pulse 100 99 100 Oximetry 07/18/20 07/18/20 07/18/20 13:23 13:28 13:33 Temperature Pulse Rate 102 H 98 H 99 H Respiratory Rate Blood Pressure Blood Pressure [Left] O2 Sat by Pulse 100 100 100 Oximetry 07/18/20 07/18/20 07/18/20 13:36 13:38 13:43 Temperature Pulse Rate 93 H 100 H 100 H Respiratory Rate Blood Pressure 116/56 Blood Pressure [Left] O2 Sat by Pulse 100 100 Oximetry 07/18/20 07/18/20 07/18/20 13:48 13:53 13:58 Temperature Pulse Rate 98 H 97 H 96 H Respiratory Rate Blood Pressure Blood Pressure [Left] O2 Sat by Pulse 100 100 100 Oximetry 07/18/20 07/18/20 07/18/20 14:03 14:07 14:08 Temperature Pulse Rate 96 H 96 H 100 H Respiratory Rate Blood Pressure 118/63 Blood Pressure [Left] O2 Sat by Pulse 100 100 Oximetry 07/18/20 07/18/20 07/18/20 14:13 14:18 14:23 Temperature Pulse Rate 93 H 91 H 86 Respiratory Rate Blood Pressure Blood Pressure [Left] O2 Sat by Pulse 100 98 99 Oximetry 07/18/20 07/18/20 07/18/20 14:28 14:33 14:37 Temperature Pulse Rate 85 88 100 H Respiratory Rate Blood Pressure 117/63 Blood Pressure [Left] O2 Sat by Pulse 98 98 Oximetry 07/18/20 07/18/20 07/18/20 14:38 16:05 16:06 Temperature Pulse Rate 94 H 92 H 98 H Respiratory Rate Blood Pressure 117/59 Blood Pressure [Left] O2 Sat by Pulse 99 99 Oximetry 07/18/20 07/18/20 07/18/20 16:10 16:15 16:20 Temperature Pulse Rate 91 H 92 H 88 Respiratory Rate Blood Pressure Blood Pressure [Left] O2 Sat by Pulse 100 100 99 Oximetry 07/18/20 07/18/20 07/18/20 16:25 16:30 16:35 Temperature Pulse Rate 98 H 109 H 95 H Respiratory Rate Blood Pressure Blood Pressure [Left] O2 Sat by Pulse 99 100 100 Oximetry 07/18/20 07/18/20 07/18/20 16:37 16:40 16:45 Temperature Pulse Rate 90 88 103 H Respiratory Rate Blood Pressure 104/52 Blood Pressure [Left] O2 Sat by Pulse 98 100 Oximetry - Exam Narrative Exam: Pt continues to deny SAMAYOA, blurred vision, spots before her eyes, chest pain, shortness of breath, and upper abdominal pain. Cervical exam: essentially unchanged from this AM, but station seems higher. Will order u/s for presentation. Breasts: deferred Cardiovascular: Regular rate Lungs: Normal air movement Abdomen: Present: normal appearance, soft Vulva: both: normal Uterus: Present: normal FHR: category 1 Uterine Contraction Monitor Mode: External Cervical Dilatation: 0 Cervical Effacement Percentage: 0 station: -4 Uterine Contraction Pattern: Absent Extremities: normal Deep Tendon Reflex Grade: Normal +2 - Labs Labs: Abnormal Labs 07/17/20 07/17/20 21:15 21:15 Hgb 9.5 L Hct 29.2 L MCV 74 L MCH 24 L RDW 18.1 H Plt Count 118 L Lactate Dehydrogenase 182 H Laboratory Results - last 24 hr 07/17/20 07/17/20 07/17/20 21:15 21:15 21:15 WBC 7.4 RBC 3.93 Hgb 9.5 L Hct 29.2 L MCV 74 L MCH 24 L MCHC 33 RDW 18.1 H Plt Count 118 L Creatinine Estimated GFR Uric Acid AST ALT Lactate Dehydrogenase Urine Color Urine Turbidity Urine pH Ur Specific [place] Urine Protein Urine Glucose (UA) Urine Ketones Urine Blood Urine Nitrite Urine Bilirubin Urine Urobilinogen Ur Leukocyte Esterase Urine WBC (Auto) Urine RBC (Auto) U Epithel Cells (Auto) Urine Bacteria (Auto) Urine Mucus Syphilis IgG Antibody Nonreactive Coronavirus (PCR) Blood Type B POSITIVE Antibody Screen Negative 07/17/20 07/17/20 07/18/20 21:15 Unknown Unknown WBC RBC Hgb Hct MCV MCH MCHC RDW Plt Count Creatinine 0.6 Estimated GFR > 60 Uric Acid 3.9 AST 16 ALT 12 Lactate Dehydrogenase 182 H Urine Color Yellow Urine Turbidity Slightly-cloudy Urine pH 6.0 Ur Specific [place] 1.024 Urine Protein <15 mg/dl Urine Glucose (UA) Neg Urine Ketones Tr Urine Blood Neg Urine Nitrite Neg Urine Bilirubin Neg Urine Urobilinogen < 2.0 Ur Leukocyte Esterase Neg Urine WBC (Auto) 5.0 Urine RBC (Auto) 6.0 U Epithel Cells (Auto) 4.0 Urine Bacteria (Auto) 1+ Urine Mucus 2+ Syphilis IgG Antibody Coronavirus (PCR) Negative Blood Type Antibody Screen
--- NOTE | 2020-07-18 17:29 | Ultrasound Report ---
US OB limited INDICATION: presentation. COMPARISON: 06/25/2020 FINDINGS: presentation is cephalic. heart rate measures 1 52 bpm Signer Name: Mac Owen MD Signed: 07/18/2020 5:25 PM Workstation Name: [id number]
[2020-07-18] MEDS ORDERED: DINOPROSTONE 10 MG VAG SUPP VG ONE (18:30)
--- NOTE | 2020-07-18 19:28 | Event Note ---
Date: 07/18/20 (Cervidil placed) Cervix unchanged. Cervidil placed. U/s verified vertex presentation.
--- NOTE | 2020-07-19 09:15 | Progress Note ---
Assessment and Plan Will try Cytotec for IOL. Patient voiced understanding and agrees with plan of care - Patient Problems (1) 37 weeks gestation of Current Visit: Yes Status: Acute (2) HTN (hypertension) Current Visit: Yes Status: Acute Qualifiers: Hypertension type: essential hypertension Qualified Code(s): I10 - Essential (primary) hypertension (3) Thrombocytopenia Current Visit: Yes Status: Acute Subjective - Subjective Date of service: 07/19/20 Principal diagnosis: IUP @ 37 2/7 wks IOL d/t cHTN, proteinuria vs superimposed pre eclampsia. Patient reports: movement normal, no new complaints, no loss of fluid, no vaginal bleeding, no contractions Objective - Vital Signs Vital Signs: Vital Signs - 12hr 07/18/20 07/18/20 07/18/20 21:14 21:19 21:24 Temperature Pulse Rate 96 H 104 H 101 H Respiratory Rate Blood Pressure Blood Pressure [Left] O2 Sat by Pulse 98 100 100 Oximetry 07/18/20 07/18/20 07/18/20 21:29 21:30 21:34 Temperature Pulse Rate 98 H 92 H 95 H Respiratory Rate Blood Pressure Blood Pressure [Left] O2 Sat by Pulse 100 85 100 Oximetry 07/18/20 07/18/20 07/18/20 21:39 21:44 21:49 Temperature Pulse Rate 97 H 99 H 95 H Respiratory Rate Blood Pressure Blood Pressure [Left] O2 Sat by Pulse 98 99 99 Oximetry 07/18/20 07/18/20 07/18/20 21:54 21:59 22:04 Temperature Pulse Rate 99 H 98 H 99 H Respiratory Rate Blood Pressure Blood Pressure [Left] O2 Sat by Pulse 98 97 100 Oximetry 07/18/20 07/18/20 07/18/20 22:09 22:14 22:19 Temperature Pulse Rate 95 H 95 H 98 H Respiratory Rate Blood Pressure Blood Pressure [Left] O2 Sat by Pulse 99 100 99 Oximetry 07/18/20 07/18/20 07/18/20 22:24 22:29 22:34 Temperature Pulse Rate 95 H 93 H 96 H Respiratory Rate Blood Pressure Blood Pressure [Left] O2 Sat by Pulse 99 99 99 Oximetry 07/18/20 07/18/20 07/18/20 22:39 22:44 22:49 Temperature Pulse Rate 95 H 96 H 103 H Respiratory Rate Blood Pressure Blood Pressure [Left] O2 Sat by Pulse 99 100 100 Oximetry 07/18/20 07/18/20 07/18/20 22:54 22:59 23:04 Temperature Pulse Rate 92 H 97 H 91 H Respiratory Rate Blood Pressure Blood Pressure [Left] O2 Sat by Pulse 99 100 100 Oximetry 07/18/20 07/18/20 07/18/20 23:05 23:09 23:14 Temperature 98.5 F Pulse Rate 90 94 H 88 Respiratory 15 Rate Blood Pressure 115/65 Blood Pressure [Left] O2 Sat by Pulse 100 100 Oximetry 07/18/20 07/18/20 07/18/20 23:19 23:24 23:29 Temperature Pulse Rate 90 89 86 Respiratory Rate Blood Pressure Blood Pressure [Left] O2 Sat by Pulse 99 100 99 Oximetry 07/18/20 07/18/20 07/18/20 23:34 23:39 23:44 Temperature Pulse Rate 89 85 88 Respiratory Rate Blood Pressure Blood Pressure [Left] O2 Sat by Pulse 99 99 99 Oximetry 07/18/20 07/18/20 07/18/20 23:49 23:54 23:59 Temperature Pulse Rate 88 89 89 Respiratory Rate Blood Pressure Blood Pressure [Left] O2 Sat by Pulse 99 99 98 Oximetry 07/19/20 07/19/20 07/19/20 00:04 00:09 00:14 Temperature Pulse Rate 89 89 91 H Respiratory Rate Blood Pressure Blood Pressure [Left] O2 Sat by Pulse 99 98 98 Oximetry 07/19/20 07/19/20 07/19/20 00:19 00:24 00:29 Temperature Pulse Rate 86 89 86 Respiratory Rate Blood Pressure Blood Pressure [Left] O2 Sat by Pulse 97 98 99 Oximetry 07/19/20 07/19/20 07/19/20 00:34 00:39 00:44 Temperature Pulse Rate 87 86 86 Respiratory Rate Blood Pressure Blood Pressure [Left] O2 Sat by Pulse 98 98 92 Oximetry 07/19/20 07/19/20 07/19/20 00:49 00:50 00:54 Temperature Pulse Rate 86 88 91 H Respiratory Rate Blood Pressure Blood Pressure [Left] O2 Sat by Pulse 98 91 99 Oximetry 07/19/20 07/19/20 07/19/20 00:59 01:04 01:09 Temperature Pulse Rate 88 86 86 Respiratory Rate Blood Pressure Blood Pressure [Left] O2 Sat by Pulse 98 98 98 Oximetry 07/19/20 07/19/20 07/19/20 01:14 01:19 01:24 Temperature Pulse Rate 87 90 85 Respiratory Rate Blood Pressure Blood Pressure [Left] O2 Sat by Pulse 98 98 98 Oximetry 07/19/20 07/19/20 07/19/20 01:29 01:34 01:39 Temperature Pulse Rate 88 93 H 88 Respiratory Rate Blood Pressure Blood Pressure [Left] O2 Sat by Pulse 98 98 98 Oximetry 07/19/20 07/19/20 07/19/20 01:44 01:49 01:54 Temperature Pulse Rate 87 88 90 Respiratory Rate Blood Pressure Blood Pressure [Left] O2 Sat by Pulse 98 98 98 Oximetry 07/19/20 07/19/20 07/19/20 01:59 02:04 02:09 Temperature Pulse Rate 88 91 H 89 Respiratory Rate Blood Pressure Blood Pressure [Left] O2 Sat by Pulse 99 100 98 Oximetry 07/19/20 07/19/20 07/19/20 02:14 02:19 02:24 Temperature Pulse Rate 88 89 89 Respiratory Rate Blood Pressure Blood Pressure [Left] O2 Sat by Pulse 99 99 98 Oximetry 07/19/20 07/19/20 07/19/20 02:29 02:32 02:37 Temperature Pulse Rate 86 85 88 Respiratory Rate Blood Pressure Blood Pressure [Left] O2 Sat by Pulse 98 98 97 Oximetry 07/19/20 07/19/20 07/19/20 02:42 02:47 02:52 Temperature Pulse Rate 89 83 81 Respiratory Rate Blood Pressure Blood Pressure [Left] O2 Sat by Pulse 98 97 98 Oximetry 07/19/20 07/19/20 07/19/20 02:57 03:02 03:07 Temperature Pulse Rate 80 88 90 Respiratory Rate Blood Pressure Blood Pressure [Left] O2 Sat by Pulse 98 98 97 Oximetry 07/19/20 07/19/20 07/19/20 03:12 03:17 03:22 Temperature Pulse Rate 83 89 86 Respiratory Rate Blood Pressure Blood Pressure [Left] O2 Sat by Pulse 97 98 97 Oximetry 07/19/20 07/19/20 07/19/20 03:27 03:32 03:37 Temperature Pulse Rate 81 83 81 Respiratory Rate Blood Pressure Blood Pressure [Left] O2 Sat by Pulse 98 98 98 Oximetry 07/19/20 07/19/20 07/19/20 03:42 03:47 03:52 Temperature Pulse Rate 79 83 79 Respiratory Rate Blood Pressure Blood Pressure [Left] O2 Sat by Pulse 98 98 99 Oximetry 07/19/20 07/19/20 07/19/20 03:57 04:02 04:07 Temperature Pulse Rate 82 84 82 Respiratory Rate Blood Pressure Blood Pressure [Left] O2 Sat by Pulse 99 99 98 Oximetry 07/19/20 07/19/20 07/19/20 04:12 04:17 04:22 Temperature Pulse Rate 82 83 83 Respiratory Rate Blood Pressure Blood Pressure [Left] O2 Sat by Pulse 99 99 99 Oximetry 07/19/20 07/19/20 07/19/20 04:27 04:32 04:37 Temperature Pulse Rate 84 81 78 Respiratory Rate Blood Pressure Blood Pressure [Left] O2 Sat by Pulse 98 98 98 Oximetry 07/19/20 07/19/20 07/19/20 04:42 04:47 04:52 Temperature Pulse Rate 79 82 81 Respiratory Rate Blood Pressure Blood Pressure [Left] O2 Sat by Pulse 98 98 98 Oximetry 07/19/20 07/19/20 07/19/20 04:57 05:01 05:02 Temperature Pulse Rate 82 77 79 Respiratory Rate Blood Pressure Blood Pressure [Left] O2 Sat by Pulse 98 94 98 Oximetry 07/19/20 07/19/20 07/19/20 05:07 05:12 05:17 Temperature Pulse Rate 79 87 81 Respiratory Rate Blood Pressure Blood Pressure [Left] O2 Sat by Pulse 99 100 98 Oximetry 07/19/20 07/19/20 07/19/20 05:22 05:27 05:32 Temperature Pulse Rate 81 79 83 Respiratory Rate Blood Pressure Blood Pressure [Left] O2 Sat by Pulse 100 99 99 Oximetry 07/19/20 07/19/20 07/19/20 05:37 05:42 05:47 Temperature Pulse Rate 83 80 83 Respiratory Rate Blood Pressure Blood Pressure [Left] O2 Sat by Pulse 98 97 98 Oximetry 07/19/20 07/19/20 07/19/20 05:51 05:52 05:57 Temperature Pulse Rate 84 82 85 Respiratory Rate Blood Pressure 116/58 Blood Pressure [Left] O2 Sat by Pulse 99 99 Oximetry 07/19/20 07/19/20 07/19/20 06:02 06:07 06:12 Temperature Pulse Rate 83 84 82 Respiratory Rate Blood Pressure Blood Pressure [Left] O2 Sat by Pulse 98 98 98 Oximetry 07/19/20 07/19/20 07/19/20 06:17 06:22 06:27 Temperature Pulse Rate 83 82 83 Respiratory Rate Blood Pressure Blood Pressure [Left] O2 Sat by Pulse 98 98 98 Oximetry 07/19/20 07/19/20 07/19/20 06:32 06:37 06:42 Temperature Pulse Rate 85 83 81 Respiratory Rate Blood Pressure Blood Pressure [Left] O2 Sat by Pulse 98 98 98 Oximetry 07/19/20 07/19/20 07/19/20 06:47 06:52 06:57 Temperature Pulse Rate 84 83 84 Respiratory Rate Blood Pressure Blood Pressure [Left] O2 Sat by Pulse 99 98 98 Oximetry 07/19/20 07/19/20 07/19/20 07:02 07:07 07:12 Temperature Pulse Rate 98 H 84 86 Respiratory Rate Blood Pressure Blood Pressure [Left] O2 Sat by Pulse 98 99 95 Oximetry 07/19/20 07/19/20 07/19/20 07:15 07:17 07:22 Temperature Pulse Rate 76 82 81 Respiratory Rate Blood Pressure Blood Pressure [Left] O2 Sat by Pulse 92 98 99 Oximetry 07/19/20 07/19/20 07/19/20 07:27 07:32 07:37 Temperature Pulse Rate 82 80 90 Respiratory Rate Blood Pressure Blood Pressure [Left] O2 Sat by Pulse 98 99 99 Oximetry 07/19/20 07/19/20 07/19/20 07:41 07:42 07:47 Temperature 98.1 F Pulse Rate 90 89 93 H Respiratory 22 Rate Blood Pressure Blood Pressure 116/58 [Left] O2 Sat by Pulse 100 99 99 Oximetry 07/19/20 07/19/20 07/19/20 07:52 07:57 08:02 Temperature Pulse Rate 90 89 87 Respiratory Rate Blood Pressure Blood Pressure [Left] O2 Sat by Pulse 99 99 100 Oximetry 07/19/20 07/19/20 07/19/20 08:07 08:12 08:15 Temperature Pulse Rate 88 84 83 Respiratory Rate Blood Pressure Blood Pressure [Left] O2 Sat by Pulse 99 99 90 Oximetry 07/19/20 07/19/20 07/19/20 08:35 08:37 08:40 Temperature Pulse Rate 113 H Respiratory Rate Blood Pressure Blood Pressure [Left] O2 Sat by Pulse 90 87 88 Oximetry 07/19/20 07/19/20 07/19/20 08:42 08:47 08:52 Temperature Pulse Rate 103 H 108 H 108 H Respiratory Rate Blood Pressure Blood Pressure [Left] O2 Sat by Pulse 88 88 89 Oximetry 07/19/20 07/19/20 07/19/20 08:53 08:57 09:02 Temperature Pulse Rate 109 H 105 H Respiratory Rate Blood Pressure Blood Pressure [Left] O2 Sat by Pulse 88 88 89 Oximetry 07/19/20 07/19/20 09:06 09:08 Temperature Pulse Rate 112 H Respiratory Rate Blood Pressure Blood Pressure [Left] O2 Sat by Pulse 89 89 Oximetry - Exam Breasts: deferred Cardiovascular: Regular rate Lungs: Normal air movement Abdomen: Present: soft. Absent: tenderness Vulva: both: normal Uterus: Present: fundal height above umbilicus. Absent: tenderness FHR: category 1 Cervical Dilatation: 0.5 Cervical Effacement Percentage: 30 station: -3 vtx Uterine Contraction Pattern: Irregular Extremities: normal Deep Tendon Reflex Grade: Normal +2 - Labs Labs: Abnormal Labs 07/17/20 07/17/20 21:15 21:15 Hgb 9.5 L Hct 29.2 L MCV 74 L MCH 24 L RDW 18.1 H Plt Count 118 L Lactate Dehydrogenase 182 H Laboratory Results - last 24 hr 07/18/20 Unknown Coronavirus (PCR) Negative
--- NOTE | 2020-07-19 09:51 | Progress Note ---
Assessment and Plan - Patient Problems (1) 37 weeks gestation of Current Visit: Yes Status: Acute (2) HTN (hypertension) Current Visit: Yes Status: Acute Qualifiers: Hypertension type: essential hypertension Qualified Code(s): I10 - Essential (primary) hypertension (3) Thrombocytopenia Current Visit: Yes Status: Acute Subjective - Subjective Principal diagnosis: IUP @ 37 2/7 wks IOL d/t cHTN, proteinuria vs superimposed pre eclampsia. Patient reports: movement normal, no new complaints, no loss of fluid, no vaginal bleeding, no contractions Objective - Vital Signs Vital Signs: Vital Signs - 12hr 07/18/20 07/18/20 07/18/20 21:44 21:49 21:54 Temperature Pulse Rate 99 H 95 H 99 H Respiratory Rate Blood Pressure Blood Pressure [Left] O2 Sat by Pulse 99 99 98 Oximetry 07/18/20 07/18/20 07/18/20 21:59 22:04 22:09 Temperature Pulse Rate 98 H 99 H 95 H Respiratory Rate Blood Pressure Blood Pressure [Left] O2 Sat by Pulse 97 100 99 Oximetry 07/18/20 07/18/20 07/18/20 22:14 22:19 22:24 Temperature Pulse Rate 95 H 98 H 95 H Respiratory Rate Blood Pressure Blood Pressure [Left] O2 Sat by Pulse 100 99 99 Oximetry 07/18/20 07/18/20 07/18/20 22:29 22:34 22:39 Temperature Pulse Rate 93 H 96 H 95 H Respiratory Rate Blood Pressure Blood Pressure [Left] O2 Sat by Pulse 99 99 99 Oximetry 07/18/20 07/18/20 07/18/20 22:44 22:49 22:54 Temperature Pulse Rate 96 H 103 H 92 H Respiratory Rate Blood Pressure Blood Pressure [Left] O2 Sat by Pulse 100 100 99 Oximetry 07/18/20 07/18/20 07/18/20 22:59 23:04 23:05 Temperature 98.5 F Pulse Rate 97 H 91 H 90 Respiratory 15 Rate Blood Pressure 115/65 Blood Pressure [Left] O2 Sat by Pulse 100 100 Oximetry 07/18/20 07/18/20 07/18/20 23:09 23:14 23:19 Temperature Pulse Rate 94 H 88 90 Respiratory Rate Blood Pressure Blood Pressure [Left] O2 Sat by Pulse 100 100 99 Oximetry 07/18/20 07/18/20 07/18/20 23:24 23:29 23:34 Temperature Pulse Rate 89 86 89 Respiratory Rate Blood Pressure Blood Pressure [Left] O2 Sat by Pulse 100 99 99 Oximetry 07/18/20 07/18/20 07/18/20 23:39 23:44 23:49 Temperature Pulse Rate 85 88 88 Respiratory Rate Blood Pressure Blood Pressure [Left] O2 Sat by Pulse 99 99 99 Oximetry 07/18/20 07/18/20 07/19/20 23:54 23:59 00:04 Temperature Pulse Rate 89 89 89 Respiratory Rate Blood Pressure Blood Pressure [Left] O2 Sat by Pulse 99 98 99 Oximetry 07/19/20 07/19/20 07/19/20 00:09 00:14 00:19 Temperature Pulse Rate 89 91 H 86 Respiratory Rate Blood Pressure Blood Pressure [Left] O2 Sat by Pulse 98 98 97 Oximetry 07/19/20 07/19/20 07/19/20 00:24 00:29 00:34 Temperature Pulse Rate 89 86 87 Respiratory Rate Blood Pressure Blood Pressure [Left] O2 Sat by Pulse 98 99 98 Oximetry 07/19/20 07/19/20 07/19/20 00:39 00:44 00:49 Temperature Pulse Rate 86 86 86 Respiratory Rate Blood Pressure Blood Pressure [Left] O2 Sat by Pulse 98 92 98 Oximetry 07/19/20 07/19/20 07/19/20 00:50 00:54 00:59 Temperature Pulse Rate 88 91 H 88 Respiratory Rate Blood Pressure Blood Pressure [Left] O2 Sat by Pulse 91 99 98 Oximetry 07/19/20 07/19/20 07/19/20 01:04 01:09 01:14 Temperature Pulse Rate 86 86 87 Respiratory Rate Blood Pressure Blood Pressure [Left] O2 Sat by Pulse 98 98 98 Oximetry 07/19/20 07/19/20 07/19/20 01:19 01:24 01:29 Temperature Pulse Rate 90 85 88 Respiratory Rate Blood Pressure Blood Pressure [Left] O2 Sat by Pulse 98 98 98 Oximetry 07/19/20 07/19/20 07/19/20 01:34 01:39 01:44 Temperature Pulse Rate 93 H 88 87 Respiratory Rate Blood Pressure Blood Pressure [Left] O2 Sat by Pulse 98 98 98 Oximetry 07/19/20 07/19/20 07/19/20 01:49 01:54 01:59 Temperature Pulse Rate 88 90 88 Respiratory Rate Blood Pressure Blood Pressure [Left] O2 Sat by Pulse 98 98 99 Oximetry 07/19/20 07/19/20 07/19/20 02:04 02:09 02:14 Temperature Pulse Rate 91 H 89 88 Respiratory Rate Blood Pressure Blood Pressure [Left] O2 Sat by Pulse 100 98 99 Oximetry 07/19/20 07/19/20 07/19/20 02:19 02:24 02:29 Temperature Pulse Rate 89 89 86 Respiratory Rate Blood Pressure Blood Pressure [Left] O2 Sat by Pulse 99 98 98 Oximetry 07/19/20 07/19/20 07/19/20 02:32 02:37 02:42 Temperature Pulse Rate 85 88 89 Respiratory Rate Blood Pressure Blood Pressure [Left] O2 Sat by Pulse 98 97 98 Oximetry 07/19/20 07/19/20 07/19/20 02:47 02:52 02:57 Temperature Pulse Rate 83 81 80 Respiratory Rate Blood Pressure Blood Pressure [Left] O2 Sat by Pulse 97 98 98 Oximetry 07/19/20 07/19/20 07/19/20 03:02 03:07 03:12 Temperature Pulse Rate 88 90 83 Respiratory Rate Blood Pressure Blood Pressure [Left] O2 Sat by Pulse 98 97 97 Oximetry 07/19/20 07/19/20 07/19/20 03:17 03:22 03:27 Temperature Pulse Rate 89 86 81 Respiratory Rate Blood Pressure Blood Pressure [Left] O2 Sat by Pulse 98 97 98 Oximetry 07/19/20 07/19/20 07/19/20 03:32 03:37 03:42 Temperature Pulse Rate 83 81 79 Respiratory Rate Blood Pressure Blood Pressure [Left] O2 Sat by Pulse 98 98 98 Oximetry 07/19/20 07/19/20 07/19/20 03:47 03:52 03:57 Temperature Pulse Rate 83 79 82 Respiratory Rate Blood Pressure Blood Pressure [Left] O2 Sat by Pulse 98 99 99 Oximetry 07/19/20 07/19/20 07/19/20 04:02 04:07 04:12 Temperature Pulse Rate 84 82 82 Respiratory Rate Blood Pressure Blood Pressure [Left] O2 Sat by Pulse 99 98 99 Oximetry 07/19/20 07/19/20 07/19/20 04:17 04:22 04:27 Temperature Pulse Rate 83 83 84 Respiratory Rate Blood Pressure Blood Pressure [Left] O2 Sat by Pulse 99 99 98 Oximetry 07/19/20 07/19/20 07/19/20 04:32 04:37 04:42 Temperature Pulse Rate 81 78 79 Respiratory Rate Blood Pressure Blood Pressure [Left] O2 Sat by Pulse 98 98 98 Oximetry 07/19/20 07/19/20 07/19/20 04:47 04:52 04:57 Temperature Pulse Rate 82 81 82 Respiratory Rate Blood Pressure Blood Pressure [Left] O2 Sat by Pulse 98 98 98 Oximetry 07/19/20 07/19/20 07/19/20 05:01 05:02 05:07 Temperature Pulse Rate 77 79 79 Respiratory Rate Blood Pressure Blood Pressure [Left] O2 Sat by Pulse 94 98 99 Oximetry 07/19/20 07/19/20 07/19/20 05:12 05:17 05:22 Temperature Pulse Rate 87 81 81 Respiratory Rate Blood Pressure Blood Pressure [Left] O2 Sat by Pulse 100 98 100 Oximetry 07/19/20 07/19/20 07/19/20 05:27 05:32 05:37 Temperature Pulse Rate 79 83 83 Respiratory Rate Blood Pressure Blood Pressure [Left] O2 Sat by Pulse 99 99 98 Oximetry 07/19/20 07/19/20 07/19/20 05:42 05:47 05:51 Temperature Pulse Rate 80 83 84 Respiratory Rate Blood Pressure 116/58 Blood Pressure [Left] O2 Sat by Pulse 97 98 Oximetry 07/19/20 07/19/20 07/19/20 05:52 05:57 06:02 Temperature Pulse Rate 82 85 83 Respiratory Rate Blood Pressure Blood Pressure [Left] O2 Sat by Pulse 99 99 98 Oximetry 07/19/20 07/19/20 07/19/20 06:07 06:12 06:17 Temperature Pulse Rate 84 82 83 Respiratory Rate Blood Pressure Blood Pressure [Left] O2 Sat by Pulse 98 98 98 Oximetry 07/19/20 07/19/20 07/19/20 06:22 06:27 06:32 Temperature Pulse Rate 82 83 85 Respiratory Rate Blood Pressure Blood Pressure [Left] O2 Sat by Pulse 98 98 98 Oximetry 07/19/20 07/19/20 07/19/20 06:37 06:42 06:47 Temperature Pulse Rate 83 81 84 Respiratory Rate Blood Pressure Blood Pressure [Left] O2 Sat by Pulse 98 98 99 Oximetry 07/19/20 07/19/20 07/19/20 06:52 06:57 07:02 Temperature Pulse Rate 83 84 98 H Respiratory Rate Blood Pressure Blood Pressure [Left] O2 Sat by Pulse 98 98 98 Oximetry 07/19/20 07/19/20 07/19/20 07:07 07:12 07:15 Temperature Pulse Rate 84 86 76 Respiratory Rate Blood Pressure Blood Pressure [Left] O2 Sat by Pulse 99 95 92 Oximetry 07/19/20 07/19/20 07/19/20 07:17 07:22 07:27 Temperature Pulse Rate 82 81 82 Respiratory Rate Blood Pressure Blood Pressure [Left] O2 Sat by Pulse 98 99 98 Oximetry 07/19/20 07/19/20 07/19/20 07:32 07:37 07:41 Temperature 98.1 F Pulse Rate 80 90 90 Respiratory 22 Rate Blood Pressure Blood Pressure 116/58 [Left] O2 Sat by Pulse 99 99 100 Oximetry 07/19/20 07/19/20 07/19/20 07:42 07:47 07:52 Temperature Pulse Rate 89 93 H 90 Respiratory Rate Blood Pressure Blood Pressure [Left] O2 Sat by Pulse 99 99 99 Oximetry 07/19/20 07/19/20 07/19/20 07:57 08:02 08:07 Temperature Pulse Rate 89 87 88 Respiratory Rate Blood Pressure Blood Pressure [Left] O2 Sat by Pulse 99 100 99 Oximetry 07/19/20 07/19/20 07/19/20 08:12 08:15 08:35 Temperature Pulse Rate 84 83 Respiratory Rate Blood Pressure Blood Pressure [Left] O2 Sat by Pulse 99 90 90 Oximetry 07/19/20 07/19/20 07/19/20 08:37 08:40 08:42 Temperature Pulse Rate 113 H 103 H Respiratory Rate Blood Pressure Blood Pressure [Left] O2 Sat by Pulse 87 88 88 Oximetry 07/19/20 07/19/20 07/19/20 08:47 08:52 08:53 Temperature Pulse Rate 108 H 108 H Respiratory Rate Blood Pressure Blood Pressure [Left] O2 Sat by Pulse 88 89 88 Oximetry 07/19/20 07/19/20 07/19/20 08:57 09:02 09:06 Temperature Pulse Rate 109 H 105 H Respiratory Rate Blood Pressure Blood Pressure [Left] O2 Sat by Pulse 88 89 89 Oximetry 07/19/20 07/19/20 07/19/20 09:08 09:13 09:18 Temperature Pulse Rate 112 H 102 H 100 H Respiratory Rate Blood Pressure Blood Pressure [Left] O2 Sat by Pulse 89 99 99 Oximetry 07/19/20 07/19/20 07/19/20 09:23 09:28 09:33 Temperature Pulse Rate 105 H 100 H 98 H Respiratory Rate Blood Pressure Blood Pressure [Left] O2 Sat by Pulse 99 100 100 Oximetry 07/19/20 09:38 Temperature Pulse Rate 108 H Respiratory Rate Blood Pressure Blood Pressure [Left] O2 Sat by Pulse 100 Oximetry - Exam Vulva: both: normal FHR: category 1 Cervical Dilatation: 1 (Cytoted placed posterior vagina) Cervical Effacement Percentage: 40 station: -2 Uterine Contraction Pattern: Absent - Labs Labs: Abnormal Labs 07/17/20 07/17/20 21:15 21:15 Hgb 9.5 L Hct 29.2 L MCV 74 L MCH 24 L RDW 18.1 H Plt Count 118 L Lactate Dehydrogenase 182 H Laboratory Results - last 24 hr 07/18/20 Unknown Coronavirus (PCR) Negative
[2020-07-19] MEDS ORDERED: miSOPROStol 25 MCG TAB VG ONE (10:00)
--- NOTE | 2020-07-19 10:30 | Anesthesia Consultation ---
Anesthesia Consult and Med Hx Date of service: 07/19/20 - Airway Anesthetic Teeth Evaluation: Good ROM Head & Neck: Adequate Mental/Hyoid Distance: Adequate Mallampati Class: Class II Intubation Access Assessment: Probably Good - Pulmonary Exam CTA: Yes - Cardiac Exam Cardiac Exam: RRR - Pre-Operative Health Status ASA Pre-Surgery Classification: ASA3 Proposed Anesthetic Plan: Epidural - Pulmonary Hx Asthma: Yes COPD: No Hx Pneumonia: No - Cardiovascular System Hx Hypertension: Yes (CHTN possible Pre-E) Hx Coronary Artery Disease: No Hx Heart Attack/AMI: No Hx Angina: No Hx Cardia Arrhythmia: No Hx Heart Murmur: No - Central Nervous System Hx Seizures: No CVA: No Hx Psychiatric Problems: No - Gastrointestinal Hx Gastroesophageal Reflux Disease: No - Endocrine Hx Renal Disease: No Hx End Stage Renal Disease: No Hx Liver Disease: No Hx Non-Insulin Dependent Diabetes: No Hx Thyroid Disease: No Hx Hypothyroidism: No Hx Hyperthyroidism: No - Hematic Hx Anemia: Yes (chronic thrombocytopenia) Hx Sickle Cell Disease: No - Other Systems Hx Alcohol Use: No Hx Obesity: Yes
[2020-07-19] MEDS ORDERED: miSOPROStol 25 MCG TAB VG SCH (11:00)
[2020-07-19 11:07] LABS: Hematocrit 27.2 % (30.3-42.9); Hemoglobin 8.8 gm/dl (10.1-14.3); Mean Corpuscular HGB Conc 33 % (30-34); Mean Corpuscular Volume 75 fl (79-97); Platelet Count 104 K/mm3 (140-440); Red Blood Count 3.65 M/mm3 (3.65-5.03); Red Cell Distribution Width 18.1 % (13.2-15.2)
[2020-07-19] MEDS ORDERED: OXYTOCIN DRIP 30 UNITS/500 ML BAG IV SCH (15:00)
[2020-07-19] MEDS: LACTATED RINGERS 1,000 ML IV SCH (15:56)
--- NOTE | 2020-07-19 19:05 | Progress Note ---
Assessment and Plan IOL(day 2) per M recommendation Unable to continue Cytotec d/t frequency of UC's Tolerated Pitocin 20mu for several hours with minimal UC's and change Will stop pitocin, allow pm care then Cervidil(#3) tonight Reassess in am Plan of care discussed with patient, questions encouraged and answered. She voiced understanding and agrees - Patient Problems (1) 37 weeks gestation of Current Visit: Yes Status: Acute (2) HTN (hypertension) Current Visit: Yes Status: Acute Qualifiers: Hypertension type: essential hypertension Qualified Code(s): I10 - Essential (primary) hypertension (3) Thrombocytopenia Current Visit: Yes Status: Acute Subjective - Subjective Date of service: 07/19/20 Principal diagnosis: IUP @ 37 2/7 wks IOL d/t cHTN, proteinuria vs superimposed pre eclampsia Patient reports: movement normal, contractions (mild), no new complaints, no loss of fluid, no vaginal bleeding Objective - Vital Signs Vital Signs: Vital Signs - 12hr 07/19/20 07/19/20 07/19/20 07:07 07:12 07:15 Temperature Pulse Rate 84 86 76 Respiratory Rate Blood Pressure Blood Pressure [Left] O2 Sat by Pulse 99 95 92 Oximetry 07/19/20 07/19/20 07/19/20 07:17 07:22 07:27 Temperature Pulse Rate 82 81 82 Respiratory Rate Blood Pressure Blood Pressure [Left] O2 Sat by Pulse 98 99 98 Oximetry 07/19/20 07/19/20 07/19/20 07:32 07:37 07:41 Temperature 98.1 F Pulse Rate 80 90 90 Respiratory 22 Rate Blood Pressure Blood Pressure 116/58 [Left] O2 Sat by Pulse 99 99 100 Oximetry 07/19/20 07/19/20 07/19/20 07:42 07:47 07:52 Temperature Pulse Rate 89 93 H 90 Respiratory Rate Blood Pressure Blood Pressure [Left] O2 Sat by Pulse 99 99 99 Oximetry 07/19/20 07/19/20 07/19/20 07:57 08:02 08:07 Temperature Pulse Rate 89 87 88 Respiratory Rate Blood Pressure Blood Pressure [Left] O2 Sat by Pulse 99 100 99 Oximetry 07/19/20 07/19/20 07/19/20 08:12 08:15 08:35 Temperature Pulse Rate 84 83 Respiratory Rate Blood Pressure Blood Pressure [Left] O2 Sat by Pulse 99 90 90 Oximetry 07/19/20 07/19/20 07/19/20 08:37 08:40 08:42 Temperature Pulse Rate 113 H 103 H Respiratory Rate Blood Pressure Blood Pressure [Left] O2 Sat by Pulse 87 88 88 Oximetry 07/19/20 07/19/20 07/19/20 08:47 08:52 08:53 Temperature Pulse Rate 108 H 108 H Respiratory Rate Blood Pressure Blood Pressure [Left] O2 Sat by Pulse 88 89 88 Oximetry 07/19/20 07/19/20 07/19/20 08:57 09:02 09:06 Temperature Pulse Rate 109 H 105 H Respiratory Rate Blood Pressure Blood Pressure [Left] O2 Sat by Pulse 88 89 89 Oximetry 07/19/20 07/19/20 07/19/20 09:08 09:13 09:18 Temperature Pulse Rate 112 H 102 H 100 H Respiratory Rate Blood Pressure Blood Pressure [Left] O2 Sat by Pulse 89 99 99 Oximetry 07/19/20 07/19/20 07/19/20 09:23 09:28 09:33 Temperature Pulse Rate 105 H 100 H 98 H Respiratory Rate Blood Pressure Blood Pressure [Left] O2 Sat by Pulse 99 100 100 Oximetry 07/19/20 07/19/20 07/19/20 09:38 09:43 09:48 Temperature Pulse Rate 108 H 106 H 108 H Respiratory Rate Blood Pressure Blood Pressure [Left] O2 Sat by Pulse 100 100 99 Oximetry 07/19/20 07/19/20 07/19/20 09:53 09:58 10:03 Temperature Pulse Rate 106 H 108 H 111 H Respiratory Rate Blood Pressure Blood Pressure [Left] O2 Sat by Pulse 100 100 100 Oximetry 07/19/20 07/19/20 07/19/20 10:08 10:13 10:18 Temperature Pulse Rate 109 H 111 H 113 H Respiratory Rate Blood Pressure Blood Pressure [Left] O2 Sat by Pulse 100 100 99 Oximetry 07/19/20 07/19/20 07/19/20 10:23 10:28 10:33 Temperature Pulse Rate 113 H 105 H 109 H Respiratory Rate Blood Pressure Blood Pressure [Left] O2 Sat by Pulse 99 98 98 Oximetry 07/19/20 07/19/20 07/19/20 10:38 10:43 10:48 Temperature Pulse Rate 107 H 109 H 108 H Respiratory Rate Blood Pressure Blood Pressure [Left] O2 Sat by Pulse 100 99 99 Oximetry 07/19/20 07/19/20 07/19/20 10:53 10:58 11:03 Temperature Pulse Rate 105 H 110 H 98 H Respiratory Rate Blood Pressure Blood Pressure [Left] O2 Sat by Pulse 99 100 99 Oximetry 07/19/20 07/19/20 07/19/20 11:09 11:15 11:20 Temperature Pulse Rate 104 H 112 H 103 H Respiratory Rate Blood Pressure Blood Pressure [Left] O2 Sat by Pulse 99 100 99 Oximetry 07/19/20 07/19/20 07/19/20 11:25 11:30 11:35 Temperature Pulse Rate 106 H 104 H 99 H Respiratory Rate Blood Pressure Blood Pressure [Left] O2 Sat by Pulse 97 97 98 Oximetry 07/19/20 07/19/20 07/19/20 11:40 11:45 11:50 Temperature Pulse Rate 94 H 96 H 100 H Respiratory Rate Blood Pressure Blood Pressure [Left] O2 Sat by Pulse 98 98 98 Oximetry 07/19/20 07/19/20 07/19/20 11:55 12:00 12:05 Temperature 98.6 F Pulse Rate 98 H 95 H 102 H Respiratory 18 Rate Blood Pressure Blood Pressure [Left] O2 Sat by Pulse 99 99 98 Oximetry 07/19/20 07/19/20 07/19/20 12:10 12:15 12:20 Temperature Pulse Rate 108 H 99 H 105 H Respiratory Rate Blood Pressure Blood Pressure [Left] O2 Sat by Pulse 99 97 99 Oximetry 07/19/20 07/19/20 07/19/20 12:25 12:30 12:35 Temperature Pulse Rate 98 H 98 H 101 H Respiratory Rate Blood Pressure Blood Pressure [Left] O2 Sat by Pulse 98 99 96 Oximetry 07/19/20 07/19/20 07/19/20 12:40 12:45 12:50 Temperature Pulse Rate 91 H 86 91 H Respiratory Rate Blood Pressure Blood Pressure [Left] O2 Sat by Pulse 99 98 99 Oximetry 07/19/20 07/19/20 07/19/20 12:55 13:00 13:05 Temperature Pulse Rate 87 89 90 Respiratory Rate Blood Pressure Blood Pressure [Left] O2 Sat by Pulse 98 99 99 Oximetry 07/19/20 07/19/20 07/19/20 13:10 13:15 13:20 Temperature Pulse Rate 92 H 96 H 96 H Respiratory Rate Blood Pressure Blood Pressure [Left] O2 Sat by Pulse 100 100 100 Oximetry 07/19/20 07/19/20 07/19/20 13:25 13:30 13:35 Temperature Pulse Rate 100 H 93 H 89 Respiratory Rate Blood Pressure Blood Pressure [Left] O2 Sat by Pulse 98 100 100 Oximetry 07/19/20 07/19/20 07/19/20 13:40 13:45 13:50 Temperature Pulse Rate 90 90 92 H Respiratory Rate Blood Pressure Blood Pressure [Left] O2 Sat by Pulse 100 100 100 Oximetry 07/19/20 07/19/20 07/19/20 13:55 14:00 14:05 Temperature Pulse Rate 92 H 92 H 97 H Respiratory Rate Blood Pressure Blood Pressure [Left] O2 Sat by Pulse 100 99 99 Oximetry 07/19/20 07/19/20 07/19/20 14:10 14:15 14:20 Temperature Pulse Rate 91 H 106 H 92 H Respiratory Rate Blood Pressure Blood Pressure [Left] O2 Sat by Pulse 100 98 100 Oximetry 07/19/20 07/19/20 07/19/20 14:25 14:30 14:35 Temperature Pulse Rate 91 H 91 H 95 H Respiratory Rate Blood Pressure Blood Pressure [Left] O2 Sat by Pulse 99 100 100 Oximetry 07/19/20 07/19/20 07/19/20 14:40 14:48 14:53 Temperature Pulse Rate 92 H 91 H 94 H Respiratory Rate Blood Pressure Blood Pressure [Left] O2 Sat by Pulse 100 100 99 Oximetry 07/19/20 07/19/20 07/19/20 14:58 15:03 15:08 Temperature Pulse Rate 95 H 95 H 93 H Respiratory Rate Blood Pressure Blood Pressure [Left] O2 Sat by Pulse 99 100 100 Oximetry 07/19/20 07/19/20 07/19/20 15:13 15:18 15:23 Temperature Pulse Rate 90 89 95 H Respiratory Rate Blood Pressure Blood Pressure [Left] O2 Sat by Pulse 99 100 99 Oximetry 07/19/20 07/19/20 07/19/20 15:28 15:33 15:38 Temperature Pulse Rate 94 H 99 H 103 H Respiratory Rate Blood Pressure Blood Pressure [Left] O2 Sat by Pulse 100 100 99 Oximetry 07/19/20 07/19/20 07/19/20 15:43 15:48 15:53 Temperature Pulse Rate 99 H 97 H 99 H Respiratory Rate Blood Pressure Blood Pressure [Left] O2 Sat by Pulse 100 100 100 Oximetry 07/19/20 07/19/20 07/19/20 15:58 16:00 16:03 Temperature 98.6 F Pulse Rate 99 H 94 H Respiratory 18 Rate Blood Pressure Blood Pressure [Left] O2 Sat by Pulse 99 100 Oximetry 07/19/20 07/19/20 07/19/20 16:08 16:13 16:18 Temperature Pulse Rate 100 H 91 H 93 H Respiratory Rate Blood Pressure Blood Pressure [Left] O2 Sat by Pulse 99 99 99 Oximetry 07/19/20 07/19/20 07/19/20 16:23 16:28 16:33 Temperature Pulse Rate 94 H 97 H 107 H Respiratory Rate Blood Pressure Blood Pressure [Left] O2 Sat by Pulse 98 99 100 Oximetry 07/19/20 07/19/20 07/19/20 16:38 16:43 16:48 Temperature Pulse Rate 93 H 96 H 92 H Respiratory Rate Blood Pressure Blood Pressure [Left] O2 Sat by Pulse 100 99 99 Oximetry 07/19/20 07/19/20 07/19/20 16:53 16:58 17:01 Temperature Pulse Rate 96 H 96 H 64 Respiratory Rate Blood Pressure Blood Pressure [Left] O2 Sat by Pulse 100 99 89 Oximetry 07/19/20 07/19/20 07/19/20 17:03 17:08 17:13 Temperature Pulse Rate 98 H 100 H 90 Respiratory Rate Blood Pressure Blood Pressure [Left] O2 Sat by Pulse 97 99 99 Oximetry 07/19/20 07/19/20 07/19/20 17:18 17:23 17:24 Temperature Pulse Rate 96 H 81 Respiratory Rate Blood Pressure Blood Pressure [Left] O2 Sat by Pulse 98 94 87 Oximetry 07/19/20 07/19/20 07/19/20 17:28 17:33 17:38 Temperature Pulse Rate 89 92 H 94 H Respiratory Rate Blood Pressure Blood Pressure [Left] O2 Sat by Pulse 98 98 97 Oximetry 07/19/20 07/19/20 07/19/20 17:43 17:48 17:53 Temperature Pulse Rate 97 H 100 H 93 H Respiratory Rate Blood Pressure Blood Pressure [Left] O2 Sat by Pulse 98 98 100 Oximetry 07/19/20 07/19/20 07/19/20 17:58 18:03 18:08 Temperature Pulse Rate 96 H 91 H 93 H Respiratory Rate Blood Pressure 121/64 Blood Pressure [Left] O2 Sat by Pulse 99 98 99 Oximetry 07/19/20 07/19/20 07/19/20 18:13 18:18 18:23 Temperature Pulse Rate 98 H 90 103 H Respiratory Rate Blood Pressure Blood Pressure [Left] O2 Sat by Pulse 99 99 99 Oximetry 07/19/20 07/19/20 07/19/20 18:47 18:52 18:57 Temperature Pulse Rate 94 H 98 H 95 H Respiratory Rate Blood Pressure Blood Pressure [Left] O2 Sat by Pulse 99 100 99 Oximetry 07/19/20 07/19/20 19:00 19:02 Temperature Pulse Rate 67 96 H Respiratory Rate Blood Pressure Blood Pressure [Left] O2 Sat by Pulse 89 99 Oximetry - Exam Breasts: deferred Cardiovascular: Regular rate Lungs: Normal air movement Abdomen: Present: soft. Absent: tenderness Vulva: both: normal Uterus: Present: fundal height above umbilicus. Absent: tenderness FHR: category 1 Uterine Contraction Monitor Mode: External Cervical Dilatation: 1.5 Cervical Effacement Percentage: 40 station: -2 Uterine Contraction Pattern: Irregular Extremities: normal Deep Tendon Reflex Grade: Normal +2 - Labs Labs: Abnormal Labs 07/17/20 07/17/20 07/19/20 21:15 21:15 10:57 Hgb 9.5 L 8.8 L Hct 29.2 L 27.2 L MCV 74 L 75 L MCH 24 L 24 L RDW 18.1 H 18.1 H Plt Count 118 L 104 L Lactate Dehydrogenase 182 H Laboratory Results - last 24 hr 07/19/20 10:57 WBC 7.0 RBC 3.65 Hgb 8.8 L Hct 27.2 L MCV 75 L MCH 24 L MCHC 33 RDW 18.1 H Plt Count 104 L
[2020-07-19] MEDS ORDERED: DINOPROSTONE 10 MG VAG SUPP VG NR (19:11)
[2020-07-20] MEDS: LACTATED RINGERS 1,000 ML IV SCH ×4 (00:07→19:34)
--- NOTE | 2020-07-20 11:08 | Progress Note ---
Assessment and Plan IOL Day 3, for CHTN with possible superimposed Preeclampsia. BP's remain normal. She's received 3 cervidils and 2 days of pitocin. Discussed continued attempt IOL vs proceeding with C/S. Risks of each discussed: failed induction that may culminate in C/S, risk for infection due to multiple exams, progression, if present, or development of Preeclampsia. Risk associated with delivery were discussed, including but not limited to, bleeding that may require blood transfusion, infection that may be life threatening, injury to adjacent organs specifically bowel or bladder that may require further surgeries, or major vascular injury. She was also informed that when she has had a delivery she may require repeat deliveries for all subsequent pregnancies. Questions were encouraged and answered, consents were reviewed and signed. Patient voiced understanding and desires to continue IOL at this time. Cook cervical balloon explained, questions answered. She agrees to placement and pitocin. Catheter and balloons were confirmed to be functioning properly. Catheter with stylet was cleansed with Betadine then was inserted over the examining hand into the cervicx. Advanced without difficulty. Once appropriate positioning of both balloons was confirmed the stylet was removed. 60mL NS placed in the uterine balloon and 50mL placed in the vaginal balloon. Catheter secured to (L) medial thigh, Pitocin order given - Patient Problems (1) 37 weeks gestation of Current Visit: Yes Status: Acute (2) HTN (hypertension) Current Visit: Yes Status: Acute Qualifiers: Hypertension type: essential hypertension Qualified Code(s): I10 - Essential (primary) hypertension Plan to address problem: possibly with superimposed preeclamspia (3) Thrombocytopenia Current Visit: Yes Status: Acute Plan to address problem: Platelets noted. Pain management limitations with low platelets discussed with patient and anesthesia. She was specifically informed she may not be able to h ave a epidural if platelets drop too low and may have to have GETA if c/s is desired/required. Per anesthesia if c/s is desired will consider recheck prior to procedure. Patient voiced understanding and desires to continue with IOL for now. Subjective - Subjective Date of service: 07/20/20 Principal diagnosis: IUP @ 37 3/7 wks IOL d/t cHTN, proteinuria vs superimposed pre eclampsia Patient reports: movement normal, no new complaints, no loss of fluid, no vaginal bleeding, no contractions Objective - Vital Signs Vital Signs: Vital Signs - 12hr 07/19/20 07/19/20 07/19/20 23:06 23:11 23:16 Temperature Pulse Rate 95 H 93 H 93 H Respiratory Rate Blood Pressure O2 Sat by Pulse 98 97 97 Oximetry 07/19/20 07/19/20 07/19/20 23:21 23:26 23:31 Temperature Pulse Rate 95 H 102 H 98 H Respiratory Rate Blood Pressure O2 Sat by Pulse 98 98 98 Oximetry 07/19/20 07/19/20 07/19/20 23:36 23:41 23:46 Temperature Pulse Rate 99 H 94 H 102 H Respiratory Rate Blood Pressure O2 Sat by Pulse 98 98 99 Oximetry 07/19/20 07/19/20 07/20/20 23:51 23:56 00:01 Temperature Pulse Rate 100 H 94 H 90 Respiratory Rate Blood Pressure O2 Sat by Pulse 98 97 98 Oximetry 07/20/20 07/20/20 07/20/20 00:06 00:07 00:08 Temperature 98.0 F Pulse Rate 96 H 91 H Respiratory 20 Rate Blood Pressure 116/64 O2 Sat by Pulse 98 Oximetry 07/20/20 07/20/20 07/20/20 00:11 00:16 00:21 Temperature Pulse Rate 98 H 93 H 101 H Respiratory Rate Blood Pressure O2 Sat by Pulse 98 97 99 Oximetry 07/20/20 07/20/20 07/20/20 01:18 01:23 01:28 Temperature Pulse Rate 94 H 90 91 H Respiratory Rate Blood Pressure O2 Sat by Pulse 98 98 97 Oximetry 07/20/20 07/20/20 07/20/20 01:33 01:38 01:43 Temperature Pulse Rate 87 90 90 Respiratory Rate Blood Pressure O2 Sat by Pulse 97 97 97 Oximetry 07/20/20 07/20/20 07/20/20 01:48 01:53 01:58 Temperature Pulse Rate 90 92 H 93 H Respiratory Rate Blood Pressure O2 Sat by Pulse 97 97 97 Oximetry 07/20/20 07/20/20 07/20/20 02:03 02:08 02:13 Temperature Pulse Rate 89 89 91 H Respiratory Rate Blood Pressure O2 Sat by Pulse 97 97 97 Oximetry 07/20/20 07/20/20 07/20/20 02:18 02:23 02:28 Temperature Pulse Rate 94 H 86 92 H Respiratory Rate Blood Pressure O2 Sat by Pulse 97 97 97 Oximetry 07/20/20 07/20/20 07/20/20 02:33 02:38 02:43 Temperature Pulse Rate 89 89 92 H Respiratory Rate Blood Pressure O2 Sat by Pulse 97 97 98 Oximetry 07/20/20 07/20/20 07/20/20 02:48 02:53 02:58 Temperature Pulse Rate 83 88 88 Respiratory Rate Blood Pressure O2 Sat by Pulse 95 97 97 Oximetry 07/20/20 07/20/20 07/20/20 03:03 03:08 03:13 Temperature Pulse Rate 84 83 89 Respiratory Rate Blood Pressure O2 Sat by Pulse 97 98 100 Oximetry 07/20/20 07/20/20 07/20/20 03:18 03:23 03:28 Temperature Pulse Rate 91 H 86 87 Respiratory Rate Blood Pressure O2 Sat by Pulse 99 96 97 Oximetry 07/20/20 07/20/20 07/20/20 03:33 03:38 03:43 Temperature Pulse Rate 84 83 85 Respiratory Rate Blood Pressure O2 Sat by Pulse 98 97 97 Oximetry 07/20/20 07/20/20 07/20/20 03:48 03:53 03:58 Temperature Pulse Rate 85 83 87 Respiratory Rate Blood Pressure O2 Sat by Pulse 97 97 97 Oximetry 07/20/20 07/20/20 07/20/20 04:03 04:08 04:13 Temperature Pulse Rate 86 86 85 Respiratory Rate Blood Pressure O2 Sat by Pulse 97 97 98 Oximetry 07/20/20 07/20/20 07/20/20 04:18 04:19 04:21 Temperature 98.3 F Pulse Rate 87 91 H Respiratory Rate Blood Pressure 121/56 O2 Sat by Pulse 99 Oximetry 07/20/20 07/20/20 07/20/20 04:23 04:28 04:33 Temperature Pulse Rate 82 86 85 Respiratory Rate Blood Pressure O2 Sat by Pulse 97 97 98 Oximetry 07/20/20 07/20/20 07/20/20 04:38 04:43 04:48 Temperature Pulse Rate 84 83 81 Respiratory Rate Blood Pressure O2 Sat by Pulse 97 97 96 Oximetry 07/20/20 07/20/20 07/20/20 04:53 04:58 05:03 Temperature Pulse Rate 81 85 79 Respiratory Rate Blood Pressure O2 Sat by Pulse 96 97 96 Oximetry 07/20/20 07/20/20 07/20/20 05:08 05:11 05:13 Temperature Pulse Rate 80 85 81 Respiratory Rate Blood Pressure O2 Sat by Pulse 97 93 98 Oximetry 07/20/20 07/20/20 07/20/20 05:16 05:18 05:22 Temperature Pulse Rate 82 85 80 Respiratory Rate Blood Pressure O2 Sat by Pulse 94 97 92 Oximetry 07/20/20 07/20/20 07/20/20 05:23 05:28 05:29 Temperature Pulse Rate 82 79 86 Respiratory Rate Blood Pressure O2 Sat by Pulse 95 95 92 Oximetry 07/20/20 07/20/20 07/20/20 05:33 05:34 05:38 Temperature Pulse Rate 79 76 77 Respiratory Rate Blood Pressure O2 Sat by Pulse 90 94 94 Oximetry 07/20/20 07/20/20 07/20/20 05:40 05:43 05:48 Temperature Pulse Rate 82 79 79 Respiratory Rate Blood Pressure O2 Sat by Pulse 94 96 96 Oximetry 07/20/20 07/20/20 07/20/20 05:53 05:58 06:03 Temperature Pulse Rate 80 84 83 Respiratory Rate Blood Pressure O2 Sat by Pulse 97 97 96 Oximetry 07/20/20 07/20/20 07/20/20 06:08 06:13 06:18 Temperature Pulse Rate 81 81 84 Respiratory Rate Blood Pressure O2 Sat by Pulse 96 96 96 Oximetry 07/20/20 07/20/20 07/20/20 06:23 06:28 06:33 Temperature Pulse Rate 82 86 86 Respiratory Rate Blood Pressure O2 Sat by Pulse 96 96 96 Oximetry 07/20/20 07/20/20 07/20/20 06:38 06:43 06:48 Temperature Pulse Rate 85 85 84 Respiratory Rate Blood Pressure O2 Sat by Pulse 95 96 96 Oximetry 07/20/20 07/20/20 07/20/20 06:53 06:55 06:58 Temperature Pulse Rate 87 109 H 84 Respiratory Rate Blood Pressure O2 Sat by Pulse 96 92 97 Oximetry 07/20/20 07/20/20 07/20/20 07:03 07:29 07:30 Temperature 98.3 F Pulse Rate 80 84 Respiratory 20 Rate Blood Pressure 121/59 O2 Sat by Pulse 96 99 Oximetry 07/20/20 07/20/20 07/20/20 07:34 07:39 07:44 Temperature Pulse Rate 91 H 89 90 Respiratory Rate Blood Pressure O2 Sat by Pulse 99 98 98 Oximetry 07/20/20 07/20/20 07/20/20 07:49 07:54 07:56 Temperature Pulse Rate 88 87 92 H Respiratory Rate Blood Pressure O2 Sat by Pulse 97 96 94 Oximetry 07/20/20 07/20/20 07/20/20 07:59 08:04 08:05 Temperature Pulse Rate 85 90 91 H Respiratory Rate Blood Pressure O2 Sat by Pulse 95 95 94 Oximetry 07/20/20 07/20/20 07/20/20 08:09 08:14 08:19 Temperature Pulse Rate 89 87 86 Respiratory Rate Blood Pressure O2 Sat by Pulse 97 97 96 Oximetry 07/20/20 07/20/20 07/20/20 08:24 08:29 08:32 Temperature Pulse Rate 87 89 90 Respiratory Rate Blood Pressure O2 Sat by Pulse 97 96 94 Oximetry 07/20/20 07/20/20 07/20/20 08:34 08:39 08:44 Temperature Pulse Rate 97 H 87 83 Respiratory Rate Blood Pressure O2 Sat by Pulse 98 96 97 Oximetry 07/20/20 07/20/20 07/20/20 08:49 08:54 08:55 Temperature Pulse Rate 89 86 92 H Respiratory Rate Blood Pressure O2 Sat by Pulse 97 97 93 Oximetry 07/20/20 07/20/20 07/20/20 08:59 09:00 09:04 Temperature Pulse Rate 88 94 H 87 Respiratory Rate Blood Pressure O2 Sat by Pulse 95 92 97 Oximetry 07/20/20 07/20/20 07/20/20 09:09 09:14 09:19 Temperature Pulse Rate 87 85 77 Respiratory Rate Blood Pressure O2 Sat by Pulse 97 97 96 Oximetry 07/20/20 07/20/20 07/20/20 09:24 09:29 09:30 Temperature Pulse Rate 90 98 H 61 Respiratory Rate Blood Pressure O2 Sat by Pulse 96 97 85 Oximetry 07/20/20 07/20/20 07/20/20 10:05 10:14 10:18 Temperature Pulse Rate 125 H 93 H Respiratory Rate Blood Pressure 110/58 O2 Sat by Pulse 82 L 92 Oximetry 07/20/20 07/20/20 07/20/20 10:28 10:33 10:38 Temperature Pulse Rate 96 H 98 H 95 H Respiratory Rate Blood Pressure O2 Sat by Pulse 99 100 99 Oximetry 07/20/20 07/20/20 07/20/20 10:43 10:48 10:53 Temperature Pulse Rate 99 H 93 H 99 H Respiratory Rate Blood Pressure O2 Sat by Pulse 100 99 98 Oximetry - Exam Breasts: deferred Lungs: Normal air movement Abdomen: Present: soft. Absent: tenderness Vulva: both: normal Uterus: Present: fundal height above umbilicus. Absent: tenderness FHR: category 1 Uterine Contraction Monitor Mode: External Cervical Dilatation: 2 Cervical Effacement Percentage: 40 ( vtx, ) station: -3 Extremities: normal Deep Tendon Reflex Grade: Normal +2 - Labs Labs: Abnormal Labs 07/17/20 07/17/20 07/19/20 21:15 21:15 10:57 Hgb 9.5 L 8.8 L Hct 29.2 L 27.2 L MCV 74 L 75 L MCH 24 L 24 L RDW 18.1 H 18.1 H Plt Count 118 L 104 L Lactate Dehydrogenase 182 H Laboratory Results - last 24 hr 07/19/20 10:57 WBC 7.0 RBC 3.65 Hgb 8.8 L Hct 27.2 L MCV 75 L MCH 24 L MCHC 33 RDW 18.1 H Plt Count 104 L
[2020-07-20] MEDS ORDERED: OXYTOCIN DRIP 30 UNITS/500 ML BAG IV SCH (12:00)
--- NOTE | 2020-07-20 13:54 | Anesthesia Consultation ---
Anesthesia Consult and Med Hx Date of service: 07/20/20 - Airway Anesthetic Teeth Evaluation: Good ROM Head & Neck: Adequate Mental/Hyoid Distance: Adequate Mallampati Class: Class II Intubation Access Assessment: Probably Good - Pulmonary Exam CTA: Yes - Cardiac Exam Cardiac Exam: RRR - Pre-Operative Health Status ASA Pre-Surgery Classification: ASA3 Proposed Anesthetic Plan: Epidural (Patient is unsure whether she wants to labor or go straight to . Discussed risk benefits of general anesthesia, spinal, and epidural options and depending on her platelet count which would be most appropriate. Patient verbalises understanding of risk/benefits. ), Spinal - Pulmonary Hx Asthma: Yes COPD: No Hx Pneumonia: No - Cardiovascular System Hx Hypertension: Yes (CHTN possible Pre-E) Hx Coronary Artery Disease: No Hx Heart Attack/AMI: No Hx Angina: No Hx Cardia Arrhythmia: No Hx Heart Murmur: No - Central Nervous System Hx Seizures: No CVA: No Hx Psychiatric Problems: No - Gastrointestinal Hx Gastroesophageal Reflux Disease: No - Endocrine Hx Renal Disease: No Hx End Stage Renal Disease: No Hx Liver Disease: No Hx Non-Insulin Dependent Diabetes: No Hx Thyroid Disease: No Hx Hypothyroidism: No Hx Hyperthyroidism: No - Hematic Hx Anemia: Yes (chronic thrombocytopenia) Hx Sickle Cell Disease: No - Other Systems Hx Alcohol Use: No Hx Obesity: Yes
--- NOTE | 2020-07-20 14:34 | Event Note ---
Date: 07/20/20
[2020-07-20 16:54] LABS: Hematocrit 28.2 % (30.3-42.9); Hemoglobin 9.2 gm/dl (10.1-14.3); Mean Corpuscular HGB Conc 32 % (30-34); Mean Corpuscular Volume 75 fl (79-97); Platelet Count 100 K/mm3 (140-440); Red Blood Count 3.79 M/mm3 (3.65-5.03); Red Cell Distribution Width 17.6 % (13.2-15.2)
[2020-07-20] MEDS ORDERED: ePHEDrine SULFATE 50 MG/1 ML INJ IV PRN (18:05)
[2020-07-20] MEDS ORDERED: NALOXONE 2 MG/2 ML INJ IV PRN (18:05)
--- NOTE | 2020-07-20 18:08 | Progress Note ---
Assessment and Plan I was called to her room earlier to review options for delivery. Platelets were checked to determine if she would be a candidate for epidural or spinal. She was informed her platelets are stable, she desired to have the cervical balloon removed and cervix exmained. Fluid was removed from each balloon and the catheter was removed without difficulty. Cervix now 4cm. She desires to proceed with epidural followed by AROM and placement of internal monitors to attempt a vaginal delivery. - Patient Problems (1) 37 weeks gestation of Current Visit: Yes Status: Acute (2) HTN (hypertension) Current Visit: Yes Status: Acute Qualifiers: Hypertension type: essential hypertension Qualified Code(s): I10 - Essential (primary) hypertension (3) Thrombocytopenia Current Visit: Yes Status: Acute Plan to address problem: stable will proceed with epidural Subjective - Subjective Date of service: 07/20/20 Principal diagnosis: IUP @ 37 3/7 wks IOL d/t cHTN, proteinuria vs superimposed pre eclampsia Patient reports: movement normal, contractions, no new complaints, no loss of fluid, no vaginal bleeding Objective - Vital Signs Vital Signs: Vital Signs - 12hr 07/20/20 07/20/20 07/20/20 06:03 06:08 06:13 Temperature Pulse Rate 83 81 81 Respiratory Rate Blood Pressure O2 Sat by Pulse 96 96 96 Oximetry 07/20/20 07/20/20 07/20/20 06:18 06:23 06:28 Temperature Pulse Rate 84 82 86 Respiratory Rate Blood Pressure O2 Sat by Pulse 96 96 96 Oximetry 07/20/20 07/20/20 07/20/20 06:33 06:38 06:43 Temperature Pulse Rate 86 85 85 Respiratory Rate Blood Pressure O2 Sat by Pulse 96 95 96 Oximetry 07/20/20 07/20/20 07/20/20 06:48 06:53 06:55 Temperature Pulse Rate 84 87 109 H Respiratory Rate Blood Pressure O2 Sat by Pulse 96 96 92 Oximetry 07/20/20 07/20/20 07/20/20 06:58 07:03 07:29 Temperature Pulse Rate 84 80 84 Respiratory Rate Blood Pressure 121/59 O2 Sat by Pulse 97 96 99 Oximetry 07/20/20 07/20/20 07/20/20 07:30 07:34 07:39 Temperature 98.3 F Pulse Rate 91 H 89 Respiratory 20 Rate Blood Pressure O2 Sat by Pulse 99 98 Oximetry 07/20/20 07/20/20 07/20/20 07:44 07:49 07:54 Temperature Pulse Rate 90 88 87 Respiratory Rate Blood Pressure O2 Sat by Pulse 98 97 96 Oximetry 07/20/20 07/20/20 07/20/20 07:56 07:59 08:04 Temperature Pulse Rate 92 H 85 90 Respiratory Rate Blood Pressure O2 Sat by Pulse 94 95 95 Oximetry 07/20/20 07/20/20 07/20/20 08:05 08:09 08:14 Temperature Pulse Rate 91 H 89 87 Respiratory Rate Blood Pressure O2 Sat by Pulse 94 97 97 Oximetry 07/20/20 07/20/20 07/20/20 08:19 08:24 08:29 Temperature Pulse Rate 86 87 89 Respiratory Rate Blood Pressure O2 Sat by Pulse 96 97 96 Oximetry 07/20/20 07/20/20 07/20/20 08:32 08:34 08:39 Temperature Pulse Rate 90 97 H 87 Respiratory Rate Blood Pressure O2 Sat by Pulse 94 98 96 Oximetry 07/20/20 07/20/20 07/20/20 08:44 08:49 08:54 Temperature Pulse Rate 83 89 86 Respiratory Rate Blood Pressure O2 Sat by Pulse 97 97 97 Oximetry 07/20/20 07/20/20 07/20/20 08:55 08:59 09:00 Temperature Pulse Rate 92 H 88 94 H Respiratory Rate Blood Pressure O2 Sat by Pulse 93 95 92 Oximetry 07/20/20 07/20/20 07/20/20 09:04 09:09 09:14 Temperature Pulse Rate 87 87 85 Respiratory Rate Blood Pressure O2 Sat by Pulse 97 97 97 Oximetry 07/20/20 07/20/20 07/20/20 09:19 09:24 09:29 Temperature Pulse Rate 77 90 98 H Respiratory Rate Blood Pressure O2 Sat by Pulse 96 96 97 Oximetry 07/20/20 07/20/20 07/20/20 09:30 10:05 10:14 Temperature Pulse Rate 61 125 H Respiratory Rate Blood Pressure O2 Sat by Pulse 85 82 L 92 Oximetry 07/20/20 07/20/20 07/20/20 10:18 10:28 10:33 Temperature Pulse Rate 93 H 96 H 98 H Respiratory Rate Blood Pressure 110/58 O2 Sat by Pulse 99 100 Oximetry 07/20/20 07/20/20 07/20/20 10:38 10:43 10:48 Temperature Pulse Rate 95 H 99 H 93 H Respiratory Rate Blood Pressure O2 Sat by Pulse 99 100 99 Oximetry 07/20/20 07/20/20 07/20/20 10:53 11:37 11:40 Temperature Pulse Rate 99 H 102 H 91 H Respiratory Rate Blood Pressure 116/58 O2 Sat by Pulse 98 97 Oximetry 07/20/20 07/20/20 07/20/20 11:42 11:47 11:52 Temperature Pulse Rate 95 H 91 H 90 Respiratory Rate Blood Pressure O2 Sat by Pulse 97 99 98 Oximetry 07/20/20 07/20/20 07/20/20 11:57 12:02 12:07 Temperature Pulse Rate 96 H 93 H 93 H Respiratory Rate Blood Pressure O2 Sat by Pulse 98 98 98 Oximetry 07/20/20 07/20/20 07/20/20 12:10 12:12 12:17 Temperature Pulse Rate 90 92 H 88 Respiratory Rate Blood Pressure 115/56 O2 Sat by Pulse 98 98 Oximetry 07/20/20 07/20/20 07/20/20 12:22 12:27 12:32 Temperature Pulse Rate 91 H 88 90 Respiratory Rate Blood Pressure O2 Sat by Pulse 98 98 97 Oximetry 07/20/20 07/20/20 07/20/20 12:37 12:40 12:42 Temperature Pulse Rate 93 H 96 H 92 H Respiratory Rate Blood Pressure 115/67 O2 Sat by Pulse 98 96 Oximetry 07/20/20 07/20/20 07/20/20 12:47 12:52 12:57 Temperature Pulse Rate 94 H 97 H 95 H Respiratory Rate Blood Pressure O2 Sat by Pulse 98 100 99 Oximetry 07/20/20 07/20/20 07/20/20 13:02 13:07 13:10 Temperature Pulse Rate 96 H 89 90 Respiratory Rate Blood Pressure 99/58 O2 Sat by Pulse 98 98 Oximetry 07/20/20 07/20/20 07/20/20 13:12 13:17 13:22 Temperature Pulse Rate 104 H 96 H 90 Respiratory Rate Blood Pressure O2 Sat by Pulse 94 97 98 Oximetry 07/20/20 07/20/20 07/20/20 13:28 13:33 13:38 Temperature Pulse Rate 94 H 90 90 Respiratory Rate Blood Pressure O2 Sat by Pulse 99 99 99 Oximetry 07/20/20 07/20/20 07/20/20 13:40 13:43 13:44 Temperature Pulse Rate 96 H 95 H Respiratory Rate Blood Pressure 119/52 O2 Sat by Pulse 86 98 Oximetry 07/20/20 07/20/20 07/20/20 13:49 13:54 13:58 Temperature Pulse Rate 97 H 93 H 90 Respiratory Rate Blood Pressure O2 Sat by Pulse 99 99 91 Oximetry 07/20/20 07/20/20 07/20/20 13:59 14:04 14:09 Temperature Pulse Rate 97 H 97 H 100 H Respiratory Rate Blood Pressure O2 Sat by Pulse 99 99 100 Oximetry 07/20/20 07/20/20 07/20/20 14:14 14:19 14:24 Temperature Pulse Rate 99 H 95 H 92 H Respiratory Rate Blood Pressure O2 Sat by Pulse 100 98 98 Oximetry 07/20/20 07/20/20 07/20/20 14:29 14:34 14:39 Temperature Pulse Rate 88 87 89 Respiratory Rate Blood Pressure O2 Sat by Pulse 98 99 99 Oximetry 07/20/20 07/20/20 07/20/20 14:44 14:49 14:54 Temperature Pulse Rate 92 H 93 H 100 H Respiratory Rate Blood Pressure O2 Sat by Pulse 99 99 98 Oximetry 07/20/20 07/20/20 07/20/20 14:59 15:05 15:10 Temperature Pulse Rate 92 H 92 H 92 H Respiratory Rate Blood Pressure O2 Sat by Pulse 99 100 100 Oximetry 07/20/20 07/20/20 07/20/20 15:13 15:15 15:20 Temperature 98.2 F Pulse Rate 93 H 94 H 89 Respiratory 18 Rate Blood Pressure 127/65 O2 Sat by Pulse 98 99 Oximetry 07/20/20 07/20/20 07/20/20 15:25 15:30 15:35 Temperature Pulse Rate 92 H 92 H 94 H Respiratory Rate Blood Pressure O2 Sat by Pulse 99 98 98 Oximetry 07/20/20 07/20/20 07/20/20 15:40 15:45 15:50 Temperature Pulse Rate 93 H 92 H 89 Respiratory Rate Blood Pressure 136/61 O2 Sat by Pulse 99 99 97 Oximetry 07/20/20 07/20/20 07/20/20 15:55 16:00 16:03 Temperature Pulse Rate 89 92 H 93 H Respiratory Rate Blood Pressure 129/59 O2 Sat by Pulse 97 99 Oximetry 07/20/20 07/20/20 07/20/20 16:05 16:10 16:15 Temperature Pulse Rate 92 H 88 96 H Respiratory Rate Blood Pressure 134/62 O2 Sat by Pulse 99 100 98 Oximetry 07/20/20 07/20/20 07/20/20 16:20 16:25 16:27 Temperature Pulse Rate 96 H 92 H 98 H Respiratory Rate Blood Pressure O2 Sat by Pulse 100 99 92 Oximetry 07/20/20 07/20/20 07/20/20 16:30 16:35 16:40 Temperature Pulse Rate 91 H 93 H 94 H Respiratory Rate Blood Pressure 115/56 O2 Sat by Pulse 98 100 100 Oximetry 07/20/20 07/20/20 07/20/20 16:45 16:50 16:55 Temperature Pulse Rate 91 H 97 H 92 H Respiratory Rate Blood Pressure O2 Sat by Pulse 100 100 97 Oximetry 07/20/20 07/20/20 07/20/20 17:00 17:05 17:10 Temperature Pulse Rate 96 H 93 H 95 H Respiratory Rate Blood Pressure 129/59 O2 Sat by Pulse 100 100 100 Oximetry 07/20/20 07/20/20 07/20/20 17:15 17:20 17:25 Temperature Pulse Rate 91 H 96 H 94 H Respiratory Rate Blood Pressure O2 Sat by Pulse 100 100 100 Oximetry 07/20/20 07/20/20 07/20/20 17:30 17:35 17:39 Temperature Pulse Rate 94 H 104 H 125 H Respiratory Rate Blood Pressure 130/70 O2 Sat by Pulse 100 97 80 L Oximetry 07/20/20 07/20/20 17:46 17:52 Temperature Pulse Rate 126 H 106 H Respiratory Rate Blood Pressure O2 Sat by Pulse 81 L 76 L Oximetry - Exam Breasts: deferred Lungs: Normal air movement Abdomen: Present: soft. Absent: tenderness Vulva: both: normal Uterus: Present: fundal height above umbilicus. Absent: tenderness FHR: category 1 Uterine Contraction Monitor Mode: External Cervical Dilatation: 4 Cervical Effacement Percentage: 50 station: -2 Uterine Contraction Pattern: Regular - Labs Labs: Abnormal Labs 07/17/20 07/17/20 07/19/20 21:15 21:15 10:57 Hgb 9.5 L 8.8 L Hct 29.2 L 27.2 L MCV 74 L 75 L MCH 24 L 24 L RDW 18.1 H 18.1 H Plt Count 118 L 104 L Lactate Dehydrogenase 182 H 07/20/20 Unknown Hgb 9.2 L Hct 28.2 L MCV 75 L MCH 24 L RDW 17.6 H Plt Count 100 L Lactate Dehydrogenase Laboratory Results - last 24 hr 07/20/20 Unknown WBC 8.1 RBC 3.79 Hgb 9.2 L Hct 28.2 L MCV 75 L MCH 24 L MCHC 32 RDW 17.6 H Plt Count 100 L
[2020-07-20] MEDS: fentaNYL-BUPIV 2 MCG/ML-0.125% 200 MCG/100 ML BAG EPIDURAL SCH (19:27)
--- NOTE | 2020-07-20 20:54 | Progress Note ---
Assessment and Plan Continue pitocin - Patient Problems (1) 37 weeks gestation of Current Visit: Yes Status: Acute (2) HTN (hypertension) Current Visit: Yes Status: Acute Qualifiers: Hypertension type: essential hypertension Qualified Code(s): I10 - Essential (primary) hypertension (3) Thrombocytopenia Current Visit: Yes Status: Acute Subjective - Subjective Date of service: 07/20/20 Principal diagnosis: IUP @ 37 3/7 wks IOL d/t cHTN, proteinuria vs superimposed pre eclampsia Patient reports: movement normal, contractions, no new complaints, no loss of fluid, no vaginal bleeding Objective - Vital Signs Vital Signs: Vital Signs - 12hr 07/20/20 07/20/20 07/20/20 08:54 08:55 08:59 Temperature Pulse Rate 86 92 H 88 Respiratory Rate Blood Pressure O2 Sat by Pulse 97 93 95 Oximetry 07/20/20 07/20/20 07/20/20 09:00 09:04 09:09 Temperature Pulse Rate 94 H 87 87 Respiratory Rate Blood Pressure O2 Sat by Pulse 92 97 97 Oximetry 07/20/20 07/20/20 07/20/20 09:14 09:19 09:24 Temperature Pulse Rate 85 77 90 Respiratory Rate Blood Pressure O2 Sat by Pulse 97 96 96 Oximetry 07/20/20 07/20/20 07/20/20 09:29 09:30 10:05 Temperature Pulse Rate 98 H 61 125 H Respiratory Rate Blood Pressure O2 Sat by Pulse 97 85 82 L Oximetry 07/20/20 07/20/20 07/20/20 10:14 10:18 10:28 Temperature Pulse Rate 93 H 96 H Respiratory Rate Blood Pressure 110/58 O2 Sat by Pulse 92 99 Oximetry 07/20/20 07/20/20 07/20/20 10:33 10:38 10:43 Temperature Pulse Rate 98 H 95 H 99 H Respiratory Rate Blood Pressure O2 Sat by Pulse 100 99 100 Oximetry 07/20/20 07/20/20 07/20/20 10:48 10:53 11:37 Temperature Pulse Rate 93 H 99 H 102 H Respiratory Rate Blood Pressure O2 Sat by Pulse 99 98 97 Oximetry 07/20/20 07/20/20 07/20/20 11:40 11:42 11:47 Temperature Pulse Rate 91 H 95 H 91 H Respiratory Rate Blood Pressure 116/58 O2 Sat by Pulse 97 99 Oximetry 07/20/20 07/20/20 07/20/20 11:52 11:57 12:02 Temperature Pulse Rate 90 96 H 93 H Respiratory Rate Blood Pressure O2 Sat by Pulse 98 98 98 Oximetry 07/20/20 07/20/20 07/20/20 12:07 12:10 12:12 Temperature Pulse Rate 93 H 90 92 H Respiratory Rate Blood Pressure 115/56 O2 Sat by Pulse 98 98 Oximetry 07/20/20 07/20/20 07/20/20 12:17 12:22 12:27 Temperature Pulse Rate 88 91 H 88 Respiratory Rate Blood Pressure O2 Sat by Pulse 98 98 98 Oximetry 07/20/20 07/20/20 07/20/20 12:32 12:37 12:40 Temperature Pulse Rate 90 93 H 96 H Respiratory Rate Blood Pressure 115/67 O2 Sat by Pulse 97 98 Oximetry 07/20/20 07/20/20 07/20/20 12:42 12:47 12:52 Temperature Pulse Rate 92 H 94 H 97 H Respiratory Rate Blood Pressure O2 Sat by Pulse 96 98 100 Oximetry 07/20/20 07/20/20 07/20/20 12:57 13:02 13:07 Temperature Pulse Rate 95 H 96 H 89 Respiratory Rate Blood Pressure O2 Sat by Pulse 99 98 98 Oximetry 07/20/20 07/20/20 07/20/20 13:10 13:12 13:17 Temperature Pulse Rate 90 104 H 96 H Respiratory Rate Blood Pressure 99/58 O2 Sat by Pulse 94 97 Oximetry 07/20/20 07/20/20 07/20/20 13:22 13:28 13:33 Temperature Pulse Rate 90 94 H 90 Respiratory Rate Blood Pressure O2 Sat by Pulse 98 99 99 Oximetry 07/20/20 07/20/20 07/20/20 13:38 13:40 13:43 Temperature Pulse Rate 90 96 H Respiratory Rate Blood Pressure 119/52 O2 Sat by Pulse 99 86 Oximetry 07/20/20 07/20/20 07/20/20 13:44 13:49 13:54 Temperature Pulse Rate 95 H 97 H 93 H Respiratory Rate Blood Pressure O2 Sat by Pulse 98 99 99 Oximetry 07/20/20 07/20/20 07/20/20 13:58 13:59 14:04 Temperature Pulse Rate 90 97 H 97 H Respiratory Rate Blood Pressure O2 Sat by Pulse 91 99 99 Oximetry 07/20/20 07/20/20 07/20/20 14:09 14:14 14:19 Temperature Pulse Rate 100 H 99 H 95 H Respiratory Rate Blood Pressure O2 Sat by Pulse 100 100 98 Oximetry 07/20/20 07/20/20 07/20/20 14:24 14:29 14:34 Temperature Pulse Rate 92 H 88 87 Respiratory Rate Blood Pressure O2 Sat by Pulse 98 98 99 Oximetry 07/20/20 07/20/20 07/20/20 14:39 14:44 14:49 Temperature Pulse Rate 89 92 H 93 H Respiratory Rate Blood Pressure O2 Sat by Pulse 99 99 99 Oximetry 07/20/20 07/20/20 07/20/20 14:54 14:59 15:05 Temperature Pulse Rate 100 H 92 H 92 H Respiratory Rate Blood Pressure O2 Sat by Pulse 98 99 100 Oximetry 07/20/20 07/20/20 07/20/20 15:10 15:13 15:15 Temperature 98.2 F Pulse Rate 92 H 93 H 94 H Respiratory 18 Rate Blood Pressure 127/65 O2 Sat by Pulse 100 98 Oximetry 07/20/20 07/20/20 07/20/20 15:20 15:25 15:30 Temperature Pulse Rate 89 92 H 92 H Respiratory Rate Blood Pressure O2 Sat by Pulse 99 99 98 Oximetry 07/20/20 07/20/20 07/20/20 15:35 15:40 15:45 Temperature Pulse Rate 94 H 93 H 92 H Respiratory Rate Blood Pressure 136/61 O2 Sat by Pulse 98 99 99 Oximetry 07/20/20 07/20/20 07/20/20 15:50 15:55 16:00 Temperature 98.4 F Pulse Rate 89 89 92 H Respiratory 20 Rate Blood Pressure O2 Sat by Pulse 97 97 99 Oximetry 07/20/20 07/20/20 07/20/20 16:03 16:05 16:10 Temperature Pulse Rate 93 H 92 H 88 Respiratory Rate Blood Pressure 129/59 134/62 O2 Sat by Pulse 99 100 Oximetry 07/20/20 07/20/20 07/20/20 16:15 16:20 16:25 Temperature Pulse Rate 96 H 96 H 92 H Respiratory Rate Blood Pressure O2 Sat by Pulse 98 100 99 Oximetry 07/20/20 07/20/20 07/20/20 16:27 16:30 16:35 Temperature Pulse Rate 98 H 91 H 93 H Respiratory Rate Blood Pressure O2 Sat by Pulse 92 98 100 Oximetry 07/20/20 07/20/20 07/20/20 16:40 16:45 16:50 Temperature Pulse Rate 94 H 91 H 97 H Respiratory Rate Blood Pressure 115/56 O2 Sat by Pulse 100 100 100 Oximetry 07/20/20 07/20/20 07/20/20 16:55 17:00 17:05 Temperature Pulse Rate 92 H 96 H 93 H Respiratory Rate Blood Pressure O2 Sat by Pulse 97 100 100 Oximetry 07/20/20 07/20/20 07/20/20 17:10 17:15 17:20 Temperature Pulse Rate 95 H 91 H 96 H Respiratory Rate Blood Pressure 129/59 O2 Sat by Pulse 100 100 100 Oximetry 07/20/20 07/20/20 07/20/20 17:25 17:30 17:35 Temperature Pulse Rate 94 H 94 H 104 H Respiratory Rate Blood Pressure 130/70 O2 Sat by Pulse 100 100 97 Oximetry 07/20/20 07/20/20 07/20/20 17:39 17:46 17:52 Temperature Pulse Rate 125 H 126 H 106 H Respiratory Rate Blood Pressure O2 Sat by Pulse 80 L 81 L 76 L Oximetry 07/20/20 07/20/20 07/20/20 17:57 18:04 18:10 Temperature Pulse Rate 119 H Respiratory Rate Blood Pressure O2 Sat by Pulse 79 L 81 L 82 L Oximetry 07/20/20 07/20/20 07/20/20 18:19 18:24 18:29 Temperature Pulse Rate 59 L 119 H 110 H Respiratory Rate Blood Pressure O2 Sat by Pulse 84 100 100 Oximetry 07/20/20 07/20/20 07/20/20 18:33 18:34 18:35 Temperature Pulse Rate 107 H 101 H 105 H Respiratory Rate Blood Pressure 135/93 120/58 O2 Sat by Pulse 100 Oximetry 07/20/20 07/20/20 07/20/20 18:37 18:39 18:41 Temperature Pulse Rate 108 H 101 H 103 H Respiratory Rate Blood Pressure 126/58 131/63 124/57 O2 Sat by Pulse 98 Oximetry 07/20/20 07/20/20 07/20/20 18:44 18:47 18:49 Temperature Pulse Rate 103 H 101 H 101 H Respiratory Rate Blood Pressure 122/56 O2 Sat by Pulse 100 99 Oximetry 07/20/20 07/20/20 07/20/20 18:52 18:54 18:59 Temperature Pulse Rate 100 H 99 H 103 H Respiratory Rate Blood Pressure 112/50 119/56 O2 Sat by Pulse 99 99 Oximetry 07/20/20 07/20/20 07/20/20 19:04 19:09 19:10 Temperature Pulse Rate 99 H 96 H 96 H Respiratory Rate Blood Pressure 119/57 O2 Sat by Pulse 100 99 Oximetry 07/20/20 07/20/20 07/20/20 19:11 19:14 19:19 Temperature 98.3 F Pulse Rate 101 H 91 H Respiratory 20 Rate Blood Pressure O2 Sat by Pulse 99 99 98 Oximetry 07/20/20 07/20/20 07/20/20 19:24 19:29 19:34 Temperature Pulse Rate 93 H 87 92 H Respiratory Rate Blood Pressure 122/55 O2 Sat by Pulse 98 98 98 Oximetry 07/20/20 07/20/20 07/20/20 19:39 19:44 19:49 Temperature Pulse Rate 89 92 H 88 Respiratory Rate Blood Pressure O2 Sat by Pulse 98 98 97 Oximetry 07/20/20 07/20/20 07/20/20 19:54 19:59 20:04 Temperature Pulse Rate 90 92 H 96 H Respiratory Rate Blood Pressure 113/53 O2 Sat by Pulse 98 98 100 Oximetry 07/20/20 07/20/20 07/20/20 20:09 20:14 20:19 Temperature Pulse Rate 94 H 111 H 103 H Respiratory Rate Blood Pressure O2 Sat by Pulse 100 100 100 Oximetry 07/20/20 07/20/20 07/20/20 20:24 20:29 20:34 Temperature Pulse Rate 105 H 96 H 96 H Respiratory Rate Blood Pressure 120/60 O2 Sat by Pulse 99 100 100 Oximetry 07/20/20 07/20/20 07/20/20 20:39 20:44 20:49 Temperature Pulse Rate 95 H 93 H 95 H Respiratory Rate Blood Pressure O2 Sat by Pulse 100 100 100 Oximetry - Exam Breasts: deferred Lungs: Normal air movement Abdomen: Present: normal appearance. Absent: tenderness Vulva: both: normal Uterus: Present: fundal height above umbilicus. Absent: tenderness FHR: category 1 FHR comments: AROM copious clear fluid, ISE and IUOC placed without difficulty. Uterine Contraction Monitor Mode: Internal Cervical Dilatation: 4.5 Cervical Effacement Percentage: 50 station: -2 Uterine Contraction Pattern: Regular Extremities: normal Deep Tendon Reflex Grade: Normal +2 - Labs Labs: Abnormal Labs 07/17/20 07/17/20 07/19/20 21:15 21:15 10:57 Hgb 9.5 L 8.8 L Hct 29.2 L 27.2 L MCV 74 L 75 L MCH 24 L 24 L RDW 18.1 H 18.1 H Plt Count 118 L 104 L Lactate Dehydrogenase 182 H 07/20/20 Unknown Hgb 9.2 L Hct 28.2 L MCV 75 L MCH 24 L RDW 17.6 H Plt Count 100 L Lactate Dehydrogenase Laboratory Results - last 24 hr 07/20/20 Unknown WBC 8.1 RBC 3.79 Hgb 9.2 L Hct 28.2 L MCV 75 L MCH 24 L MCHC 32 RDW 17.6 H Plt Count 100 L
[2020-07-21] MEDS: fentaNYL-BUPIV 2 MCG/ML-0.125% 200 MCG/100 ML BAG EPIDURAL SCH (02:54)
[2020-07-21] MEDS ORDERED: SODIUM CHLORIDE 0.9% 1000 ML 1,000 ML VG PRN (03:09)
--- NOTE | 2020-07-21 04:07 | Progress Note ---
Assessment and Plan Patient just repositioned and examined by RN, 5cm and effacing, Good variability with intermittent mild variables and early decels that resolve at the end of contractions, FHT"s 130-135. Will recheck ~1hour. Attempting to progress to 6cm, active labor with ROM before diagnosing failed IOL if baby remains stable. Patient agrees with plan of care. - Patient Problems (1) 37 weeks gestation of Current Visit: Yes Status: Acute (2) HTN (hypertension) Current Visit: Yes Status: Acute Qualifiers: Hypertension type: essential hypertension Qualified Code(s): I10 - Essential (primary) hypertension (3) Thrombocytopenia Current Visit: Yes Status: Acute Subjective - Subjective Date of service: 07/21/20 Principal diagnosis: IUP @ 37 3/7 wks IOL d/t cHTN, proteinuria vs superimposed pre eclampsia Patient reports: movement normal, contractions, no new complaints, no loss of fluid, no vaginal bleeding Objective - Vital Signs Vital Signs: Vital Signs - 12hr 07/20/20 07/20/20 07/20/20 16:03 16:05 16:10 Temperature Pulse Rate 93 H 92 H 88 Respiratory Rate Blood Pressure 129/59 134/62 O2 Sat by Pulse 99 100 Oximetry 07/20/20 07/20/20 07/20/20 16:15 16:20 16:25 Temperature Pulse Rate 96 H 96 H 92 H Respiratory Rate Blood Pressure O2 Sat by Pulse 98 100 99 Oximetry 07/20/20 07/20/20 07/20/20 16:27 16:30 16:35 Temperature Pulse Rate 98 H 91 H 93 H Respiratory Rate Blood Pressure O2 Sat by Pulse 92 98 100 Oximetry 07/20/20 07/20/20 07/20/20 16:40 16:45 16:50 Temperature Pulse Rate 94 H 91 H 97 H Respiratory Rate Blood Pressure 115/56 O2 Sat by Pulse 100 100 100 Oximetry 07/20/20 07/20/20 07/20/20 16:55 17:00 17:05 Temperature Pulse Rate 92 H 96 H 93 H Respiratory Rate Blood Pressure O2 Sat by Pulse 97 100 100 Oximetry 07/20/20 07/20/20 07/20/20 17:10 17:15 17:20 Temperature Pulse Rate 95 H 91 H 96 H Respiratory Rate Blood Pressure 129/59 O2 Sat by Pulse 100 100 100 Oximetry 0507/20/20 07/20/20 17:25 17:30 17:35 Temperature Pulse Rate 94 H 94 H 104 H Respiratory Rate Blood Pressure 130/70 O2 Sat by Pulse 100 100 97 Oximetry 07/20/20 07/20/20 07/20/20 17:39 17:46 17:52 Temperature Pulse Rate 125 H 126 H 106 H Respiratory Rate Blood Pressure O2 Sat by Pulse 80 L 81 L 76 L Oximetry 07/20/20 07/20/20 07/20/20 17:57 18:04 18:10 Temperature Pulse Rate 119 H Respiratory Rate Blood Pressure O2 Sat by Pulse 79 L 81 L 82 L Oximetry 07/20/20 07/20/20 07/20/20 18:19 18:24 18:29 Temperature Pulse Rate 59 L 119 H 110 H Respiratory Rate Blood Pressure O2 Sat by Pulse 84 100 100 Oximetry 07/20/20 07/20/20 07/20/20 18:33 18:34 18:35 Temperature Pulse Rate 107 H 101 H 105 H Respiratory Rate Blood Pressure 135/93 120/58 O2 Sat by Pulse 100 Oximetry 07/20/20 07/20/20 07/20/20 18:37 18:39 18:41 Temperature Pulse Rate 108 H 101 H 103 H Respiratory Rate Blood Pressure 126/58 131/63 124/57 O2 Sat by Pulse 98 Oximetry 07/20/20 07/20/20 07/20/20 18:44 18:47 18:49 Temperature Pulse Rate 103 H 101 H 101 H Respiratory Rate Blood Pressure 122/56 O2 Sat by Pulse 100 99 Oximetry 07/20/20 07/20/20 07/20/20 18:52 18:54 18:59 Temperature Pulse Rate 100 H 99 H 103 H Respiratory Rate Blood Pressure 112/50 119/56 O2 Sat by Pulse 99 99 Oximetry 07/20/20 07/20/20 07/20/20 19:04 19:09 19:10 Temperature Pulse Rate 99 H 96 H 96 H Respiratory Rate Blood Pressure 119/57 O2 Sat by Pulse 100 99 Oximetry 07/20/20 07/20/20 07/20/20 19:11 19:14 19:19 Temperature 98.3 F Pulse Rate 101 H 91 H Respiratory 20 Rate Blood Pressure O2 Sat by Pulse 99 99 98 Oximetry 07/20/20 07/20/20 07/20/20 19:24 19:29 19:34 Temperature Pulse Rate 93 H 87 92 H Respiratory Rate Blood Pressure 122/55 O2 Sat by Pulse 98 98 98 Oximetry 07/20/20 07/20/20 07/20/20 19:39 19:44 19:49 Temperature Pulse Rate 89 92 H 88 Respiratory Rate Blood Pressure O2 Sat by Pulse 98 98 97 Oximetry 07/20/20 07/20/20 07/20/20 19:54 19:59 20:04 Temperature Pulse Rate 90 92 H 96 H Respiratory Rate Blood Pressure 113/53 O2 Sat by Pulse 98 98 100 Oximetry 07/20/20 07/20/20 07/20/20 20:09 20:14 20:19 Temperature Pulse Rate 94 H 111 H 103 H Respiratory Rate Blood Pressure O2 Sat by Pulse 100 100 100 Oximetry 07/20/20 07/20/20 07/20/20 20:24 20:29 20:34 Temperature Pulse Rate 105 H 96 H 96 H Respiratory Rate Blood Pressure 120/60 O2 Sat by Pulse 99 100 100 Oximetry 07/20/20 07/20/20 07/20/20 20:39 20:44 20:49 Temperature Pulse Rate 95 H 93 H 95 H Respiratory Rate Blood Pressure O2 Sat by Pulse 100 100 100 Oximetry 07/20/20 07/20/20 07/20/20 20:54 20:59 21:04 Temperature Pulse Rate 91 H 89 96 H Respiratory Rate Blood Pressure O2 Sat by Pulse 100 100 100 Oximetry 07/20/20 07/20/20 07/20/20 21:09 21:14 21:19 Temperature Pulse Rate 98 H 99 H 94 H Respiratory Rate Blood Pressure O2 Sat by Pulse 100 100 100 Oximetry 07/20/20 07/20/20 07/20/20 21:24 21:29 21:34 Temperature Pulse Rate 91 H 94 H 97 H Respiratory Rate Blood Pressure 106/54 O2 Sat by Pulse 100 100 100 Oximetry 07/20/20 07/20/20 07/20/20 21:39 21:44 21:49 Temperature Pulse Rate 100 H 95 H 100 H Respiratory Rate Blood Pressure O2 Sat by Pulse 98 100 100 Oximetry 07/20/20 07/20/20 07/20/20 21:54 21:59 22:04 Temperature Pulse Rate 96 H 96 H 98 H Respiratory Rate Blood Pressure 120/58 O2 Sat by Pulse 100 100 100 Oximetry 07/20/20 07/20/20 07/20/20 22:09 22:14 22:19 Temperature Pulse Rate 92 H 96 H 95 H Respiratory Rate Blood Pressure O2 Sat by Pulse 100 100 100 Oximetry 07/20/20 07/20/20 07/20/20 22:24 22:29 22:34 Temperature Pulse Rate 96 H 98 H 103 H Respiratory Rate Blood Pressure 93/53 O2 Sat by Pulse 100 100 100 Oximetry 07/20/20 07/20/20 07/20/20 22:39 22:44 22:49 Temperature Pulse Rate 96 H 100 H 95 H Respiratory Rate Blood Pressure O2 Sat by Pulse 100 100 100 Oximetry 07/20/20 07/20/20 07/20/20 22:54 22:58 22:59 Temperature Pulse Rate 113 H 94 H 94 H Respiratory Rate Blood Pressure 120/56 O2 Sat by Pulse 100 100 Oximetry 07/20/20 07/20/20 07/20/20 23:04 23:09 23:14 Temperature Pulse Rate 94 H 95 H 97 H Respiratory Rate Blood Pressure O2 Sat by Pulse 100 100 99 Oximetry 07/20/20 07/20/20 07/20/20 23:19 23:24 23:29 Temperature Pulse Rate 96 H 105 H 116 H Respiratory Rate Blood Pressure 125/57 O2 Sat by Pulse 100 100 100 Oximetry 07/20/20 07/20/20 07/20/20 23:34 23:39 23:44 Temperature Pulse Rate 99 H 98 H 98 H Respiratory Rate Blood Pressure O2 Sat by Pulse 100 100 100 Oximetry 07/20/20 07/20/20 07/20/20 23:49 23:54 23:59 Temperature Pulse Rate 100 H 101 H 103 H Respiratory Rate Blood Pressure 110/56 O2 Sat by Pulse 99 99 100 Oximetry 07/21/20 07/21/20 07/21/20 00:04 00:09 00:14 Temperature Pulse Rate 100 H 101 H 99 H Respiratory Rate Blood Pressure O2 Sat by Pulse 99 99 100 Oximetry 07/21/20 07/21/20 07/21/20 00:19 00:24 00:28 Temperature Pulse Rate 95 H 94 H 93 H Respiratory Rate Blood Pressure 108/51 O2 Sat by Pulse 99 99 Oximetry 07/21/20 07/21/20 07/21/20 00:29 00:34 00:39 Temperature Pulse Rate 92 H 95 H 95 H Respiratory Rate Blood Pressure O2 Sat by Pulse 98 99 98 Oximetry 07/21/20 07/21/20 07/21/20 00:44 00:49 00:54 Temperature Pulse Rate 97 H 96 H 97 H Respiratory Rate Blood Pressure O2 Sat by Pulse 100 99 99 Oximetry 07/21/20 07/21/20 07/21/20 00:59 01:04 01:09 Temperature Pulse Rate 99 H 98 H 96 H Respiratory Rate Blood Pressure 122/59 O2 Sat by Pulse 100 97 98 Oximetry 07/21/20 07/21/20 07/21/20 01:14 01:19 01:24 Temperature Pulse Rate 102 H 104 H 99 H Respiratory Rate Blood Pressure O2 Sat by Pulse 100 98 98 Oximetry 07/21/20 07/21/20 07/21/20 01:28 01:29 01:34 Temperature Pulse Rate 99 H 96 H 121 H Respiratory Rate Blood Pressure 114/59 O2 Sat by Pulse 97 100 Oximetry 07/21/20 07/21/20 07/21/20 01:39 01:44 01:49 Temperature Pulse Rate 100 H 99 H 98 H Respiratory Rate Blood Pressure O2 Sat by Pulse 99 100 99 Oximetry 07/21/20 07/21/20 07/21/20 01:54 01:58 01:59 Temperature Pulse Rate 98 H 99 H 103 H Respiratory Rate Blood Pressure 117/56 O2 Sat by Pulse 99 100 Oximetry 07/21/20 07/21/20 07/21/20 02:04 02:09 02:14 Temperature Pulse Rate 98 H 102 H 100 H Respiratory Rate Blood Pressure O2 Sat by Pulse 98 99 99 Oximetry 07/21/20 07/21/20 07/21/20 02:19 02:24 02:29 Temperature Pulse Rate 98 H 100 H 96 H Respiratory Rate Blood Pressure 130/60 O2 Sat by Pulse 99 99 99 Oximetry 07/21/20 07/21/20 07/21/20 02:34 02:39 02:44 Temperature Pulse Rate 102 H 98 H 102 H Respiratory Rate Blood Pressure O2 Sat by Pulse 99 99 98 Oximetry 07/21/20 07/21/20 07/21/20 02:49 02:54 02:59 Temperature Pulse Rate 96 H 96 H 104 H Respiratory Rate Blood Pressure 108/50 O2 Sat by Pulse 99 100 100 Oximetry 07/21/20 07/21/20 07/21/20 03:04 03:09 03:14 Temperature Pulse Rate 106 H 105 H 104 H Respiratory Rate Blood Pressure O2 Sat by Pulse 100 99 99 Oximetry 07/21/20 07/21/20 07/21/20 03:19 03:24 03:28 Temperature Pulse Rate 116 H 109 H 111 H Respiratory Rate Blood Pressure 117/58 O2 Sat by Pulse 100 100 Oximetry 07/21/20 07/21/20 07/21/20 03:29 03:34 03:39 Temperature Pulse Rate 108 H 105 H 104 H Respiratory Rate Blood Pressure O2 Sat by Pulse 100 100 99 Oximetry 07/21/20 07/21/20 07/21/20 03:44 03:49 03:54 Temperature Pulse Rate 106 H 104 H 104 H Respiratory Rate Blood Pressure O2 Sat by Pulse 99 100 99 Oximetry 07/21/20 07/21/20 03:59 04:00 Temperature Pulse Rate 105 H 102 H Respiratory Rate Blood Pressure 117/56 O2 Sat by Pulse 99 Oximetry - Labs Labs: Abnormal Labs 07/17/20 07/17/20 07/19/20 21:15 21:15 10:57 Hgb 9.5 L 8.8 L Hct 29.2 L 27.2 L MCV 74 L 75 L MCH 24 L 24 L RDW 18.1 H 18.1 H Plt Count 118 L 104 L Lactate Dehydrogenase 182 H 07/20/20 Unknown Hgb 9.2 L Hct 28.2 L MCV 75 L MCH 24 L RDW 17.6 H Plt Count 100 L Lactate Dehydrogenase Laboratory Results - last 24 hr 07/20/20 07/20/20 20:30 Unknown WBC 8.1 RBC 3.79 Hgb 9.2 L Hct 28.2 L MCV 75 L MCH 24 L MCHC 32 RDW 17.6 H Plt Count 100 L Blood Type B POSITIVE Antibody Screen Negative
--- NOTE | 2020-07-21 04:32 | Progress Note ---
Assessment and Plan Anticipate vaginal delivery - Patient Problems (1) 37 weeks gestation of Current Visit: Yes Status: Acute (2) HTN (hypertension) Current Visit: Yes Status: Acute Qualifiers: Hypertension type: essential hypertension Qualified Code(s): I10 - Essential (primary) hypertension (3) Thrombocytopenia Current Visit: Yes Status: Acute Subjective - Subjective Date of service: 07/21/20 Principal diagnosis: IUP @ 37 4/7 wks IOL d/t cHTN, proteinuria vs superimposed pre eclampsia Patient reports: new complaints (Vomiting and pressusre), movement normal, contractions, no loss of fluid, no vaginal bleeding Objective - Vital Signs Vital Signs: Vital Signs - 12hr 07/20/20 07/20/20 07/20/20 16:35 16:40 16:45 Temperature Pulse Rate 93 H 94 H 91 H Respiratory Rate Blood Pressure 115/56 O2 Sat by Pulse 100 100 100 Oximetry 07/20/20 07/20/20 07/20/20 16:50 16:55 17:00 Temperature Pulse Rate 97 H 92 H 96 H Respiratory Rate Blood Pressure O2 Sat by Pulse 100 97 100 Oximetry 07/20/20 07/20/20 07/20/20 17:05 17:10 17:15 Temperature Pulse Rate 93 H 95 H 91 H Respiratory Rate Blood Pressure 129/59 O2 Sat by Pulse 100 100 100 Oximetry 07/20/20 07/20/20 07/20/20 17:20 17:25 17:30 Temperature Pulse Rate 96 H 94 H 94 H Respiratory Rate Blood Pressure O2 Sat by Pulse 100 100 100 Oximetry 07/20/20 07/20/20 07/20/20 17:35 17:39 17:46 Temperature Pulse Rate 104 H 125 H 126 H Respiratory Rate Blood Pressure 130/70 O2 Sat by Pulse 97 80 L 81 L Oximetry 07/20/20 07/20/20 07/20/20 17:52 17:57 18:04 Temperature Pulse Rate 106 H Respiratory Rate Blood Pressure O2 Sat by Pulse 76 L 79 L 81 L Oximetry 07/20/20 07/20/20 07/20/20 18:10 18:19 18:24 Temperature Pulse Rate 119 H 59 L 119 H Respiratory Rate Blood Pressure O2 Sat by Pulse 82 L 84 100 Oximetry 07/20/20 07/20/20 07/20/20 18:29 18:33 18:34 Temperature Pulse Rate 110 H 107 H 101 H Respiratory Rate Blood Pressure 135/93 O2 Sat by Pulse 100 100 Oximetry 07/20/20 07/20/20 07/20/20 18:35 18:37 18:39 Temperature Pulse Rate 105 H 108 H 101 H Respiratory Rate Blood Pressure 120/58 126/58 131/63 O2 Sat by Pulse 98 Oximetry 07/20/20 07/20/20 07/20/20 18:41 18:44 18:47 Temperature Pulse Rate 103 H 103 H 101 H Respiratory Rate Blood Pressure 124/57 122/56 O2 Sat by Pulse 100 Oximetry 07/20/20 07/20/20 07/20/20 18:49 18:52 18:54 Temperature Pulse Rate 101 H 100 H 99 H Respiratory Rate Blood Pressure 112/50 O2 Sat by Pulse 99 99 Oximetry 07/20/20 07/20/20 07/20/20 18:59 19:04 19:09 Temperature Pulse Rate 103 H 99 H 96 H Respiratory Rate Blood Pressure 119/56 O2 Sat by Pulse 99 100 99 Oximetry 07/20/20 07/20/20 07/20/20 19:10 19:11 19:14 Temperature 98.3 F Pulse Rate 96 H 101 H Respiratory 20 Rate Blood Pressure 119/57 O2 Sat by Pulse 99 99 Oximetry 07/20/20 07/20/20 07/20/20 19:19 19:24 19:29 Temperature Pulse Rate 91 H 93 H 87 Respiratory Rate Blood Pressure 122/55 O2 Sat by Pulse 98 98 98 Oximetry 07/20/20 07/20/20 07/20/20 19:34 19:39 19:44 Temperature Pulse Rate 92 H 89 92 H Respiratory Rate Blood Pressure O2 Sat by Pulse 98 98 98 Oximetry 07/20/20 07/20/20 07/20/20 19:49 19:54 19:59 Temperature Pulse Rate 88 90 92 H Respiratory Rate Blood Pressure 113/53 O2 Sat by Pulse 97 98 98 Oximetry 07/20/20 07/20/20 07/20/20 20:04 20:09 20:14 Temperature Pulse Rate 96 H 94 H 111 H Respiratory Rate Blood Pressure O2 Sat by Pulse 100 100 100 Oximetry 07/20/20 07/20/20 07/20/20 20:19 20:24 20:29 Temperature Pulse Rate 103 H 105 H 96 H Respiratory Rate Blood Pressure 120/60 O2 Sat by Pulse 100 99 100 Oximetry 07/20/20 07/20/20 07/20/20 20:34 20:39 20:44 Temperature Pulse Rate 96 H 95 H 93 H Respiratory Rate Blood Pressure O2 Sat by Pulse 100 100 100 Oximetry 07/20/20 07/20/20 07/20/20 20:49 20:54 20:59 Temperature Pulse Rate 95 H 91 H 89 Respiratory Rate Blood Pressure O2 Sat by Pulse 100 100 100 Oximetry 07/20/20 07/20/20 07/20/20 21:04 21:09 21:14 Temperature Pulse Rate 96 H 98 H 99 H Respiratory Rate Blood Pressure O2 Sat by Pulse 100 100 100 Oximetry 07/20/20 07/20/20 07/20/20 21:19 21:24 21:29 Temperature Pulse Rate 94 H 91 H 94 H Respiratory Rate Blood Pressure O2 Sat by Pulse 100 100 100 Oximetry 07/20/20 07/20/20 07/20/20 21:34 21:39 21:44 Temperature Pulse Rate 97 H 100 H 95 H Respiratory Rate Blood Pressure 106/54 O2 Sat by Pulse 100 98 100 Oximetry 07/20/20 07/20/20 07/20/20 21:49 21:54 21:59 Temperature Pulse Rate 100 H 96 H 96 H Respiratory Rate Blood Pressure 120/58 O2 Sat by Pulse 100 100 100 Oximetry 07/20/20 07/20/20 07/20/20 22:04 22:09 22:14 Temperature Pulse Rate 98 H 92 H 96 H Respiratory Rate Blood Pressure O2 Sat by Pulse 100 100 100 Oximetry 07/20/20 07/20/20 07/20/20 22:19 22:24 22:29 Temperature Pulse Rate 95 H 96 H 98 H Respiratory Rate Blood Pressure 93/53 O2 Sat by Pulse 100 100 100 Oximetry 07/20/20 07/20/20 07/20/20 22:34 22:39 22:44 Temperature Pulse Rate 103 H 96 H 100 H Respiratory Rate Blood Pressure O2 Sat by Pulse 100 100 100 Oximetry 07/20/20 07/20/20 07/20/20 22:49 22:54 22:58 Temperature Pulse Rate 95 H 113 H 94 H Respiratory Rate Blood Pressure 120/56 O2 Sat by Pulse 100 100 Oximetry 07/20/20 07/20/20 07/20/20 22:59 23:04 23:09 Temperature Pulse Rate 94 H 94 H 95 H Respiratory Rate Blood Pressure O2 Sat by Pulse 100 100 100 Oximetry 07/20/20 07/20/20 07/20/20 23:14 23:19 23:24 Temperature Pulse Rate 97 H 96 H 105 H Respiratory Rate Blood Pressure O2 Sat by Pulse 99 100 100 Oximetry 07/20/20 07/20/20 07/20/20 23:29 23:34 23:39 Temperature Pulse Rate 116 H 99 H 98 H Respiratory Rate Blood Pressure 125/57 O2 Sat by Pulse 100 100 100 Oximetry 07/20/20 07/20/20 07/20/20 23:44 23:49 23:54 Temperature Pulse Rate 98 H 100 H 101 H Respiratory Rate Blood Pressure O2 Sat by Pulse 100 99 99 Oximetry 07/20/20 07/21/20 07/21/20 23:59 00:04 00:09 Temperature Pulse Rate 103 H 100 H 101 H Respiratory Rate Blood Pressure 110/56 O2 Sat by Pulse 100 99 99 Oximetry 07/21/20 07/21/20 07/21/20 00:14 00:19 00:24 Temperature Pulse Rate 99 H 95 H 94 H Respiratory Rate Blood Pressure O2 Sat by Pulse 100 99 99 Oximetry 07/21/20 07/21/20 07/21/20 00:28 00:29 00:34 Temperature Pulse Rate 93 H 92 H 95 H Respiratory Rate Blood Pressure 108/51 O2 Sat by Pulse 98 99 Oximetry 07/21/20 07/21/20 07/21/20 00:39 00:44 00:49 Temperature Pulse Rate 95 H 97 H 96 H Respiratory Rate Blood Pressure O2 Sat by Pulse 98 100 99 Oximetry 07/21/20 07/21/20 07/21/20 00:54 00:59 01:04 Temperature Pulse Rate 97 H 99 H 98 H Respiratory Rate Blood Pressure 122/59 O2 Sat by Pulse 99 100 97 Oximetry 07/21/20 07/21/20 07/21/20 01:09 01:14 01:19 Temperature Pulse Rate 96 H 102 H 104 H Respiratory Rate Blood Pressure O2 Sat by Pulse 98 100 98 Oximetry 07/21/20 07/21/20 07/21/20 01:24 01:28 01:29 Temperature Pulse Rate 99 H 99 H 96 H Respiratory Rate Blood Pressure 114/59 O2 Sat by Pulse 98 97 Oximetry 07/21/20 07/21/20 07/21/20 01:34 01:39 01:44 Temperature Pulse Rate 121 H 100 H 99 H Respiratory Rate Blood Pressure O2 Sat by Pulse 100 99 100 Oximetry 07/21/20 07/21/20 07/21/20 01:49 01:54 01:58 Temperature Pulse Rate 98 H 98 H 99 H Respiratory Rate Blood Pressure 117/56 O2 Sat by Pulse 99 99 Oximetry 07/21/20 07/21/20 07/21/20 01:59 02:04 02:09 Temperature Pulse Rate 103 H 98 H 102 H Respiratory Rate Blood Pressure O2 Sat by Pulse 100 98 99 Oximetry 07/21/20 07/21/20 07/21/20 02:14 02:19 02:24 Temperature Pulse Rate 100 H 98 H 100 H Respiratory Rate Blood Pressure O2 Sat by Pulse 99 99 99 Oximetry 07/21/20 07/21/20 07/21/20 02:29 02:34 02:39 Temperature Pulse Rate 96 H 102 H 98 H Respiratory Rate Blood Pressure 130/60 O2 Sat by Pulse 99 99 99 Oximetry 07/21/20 07/21/20 07/21/20 02:44 02:49 02:54 Temperature Pulse Rate 102 H 96 H 96 H Respiratory Rate Blood Pressure O2 Sat by Pulse 98 99 100 Oximetry 07/21/20 07/21/20 07/21/20 02:59 03:04 03:09 Temperature Pulse Rate 104 H 106 H 105 H Respiratory Rate Blood Pressure 108/50 O2 Sat by Pulse 100 100 99 Oximetry 07/21/20 07/21/20 07/21/20 03:14 03:19 03:24 Temperature Pulse Rate 104 H 116 H 109 H Respiratory Rate Blood Pressure O2 Sat by Pulse 99 100 100 Oximetry 07/21/20 07/21/20 07/21/20 03:28 03:29 03:34 Temperature Pulse Rate 111 H 108 H 105 H Respiratory Rate Blood Pressure 117/58 O2 Sat by Pulse 100 100 Oximetry 07/21/20 07/21/20 07/21/20 03:39 03:44 03:49 Temperature Pulse Rate 104 H 106 H 104 H Respiratory Rate Blood Pressure O2 Sat by Pulse 99 99 100 Oximetry 07/21/20 07/21/20 07/21/20 03:54 03:59 04:00 Temperature Pulse Rate 104 H 105 H 102 H Respiratory Rate Blood Pressure 117/56 O2 Sat by Pulse 99 99 Oximetry 07/21/20 07/21/20 07/21/20 04:04 04:09 04:14 Temperature Pulse Rate 105 H 106 H 111 H Respiratory Rate Blood Pressure O2 Sat by Pulse 100 99 100 Oximetry 07/21/20 07/21/20 04:19 04:24 Temperature Pulse Rate 135 H 122 H Respiratory Rate Blood Pressure O2 Sat by Pulse 99 99 Oximetry - Exam Breasts: deferred Lungs: Normal air movement Abdomen: Present: soft. Absent: tenderness Vulva: both: normal Uterus: Present: fundal height above umbilicus. Absent: tenderness Uterine Contraction Monitor Mode: Internal Cervical Dilatation: 7.5 Cervical Effacement Percentage: 90 station: 0 Uterine Contraction Pattern: Regular (Pitocin was decreased to 16mu/min) - Labs Labs: Abnormal Labs 07/17/20 07/17/20 07/19/20 21:15 21:15 10:57 Hgb 9.5 L 8.8 L Hct 29.2 L 27.2 L MCV 74 L 75 L MCH 24 L 24 L RDW 18.1 H 18.1 H Plt Count 118 L 104 L Lactate Dehydrogenase 182 H 07/20/20 Unknown Hgb 9.2 L Hct 28.2 L MCV 75 L MCH 24 L RDW 17.6 H Plt Count 100 L Lactate Dehydrogenase Laboratory Results - last 24 hr 07/20/20 07/20/20 20:30 Unknown WBC 8.1 RBC 3.79 Hgb 9.2 L Hct 28.2 L MCV 75 L MCH 24 L MCHC 32 RDW 17.6 H Plt Count 100 L Blood Type B POSITIVE Antibody Screen Negative
[2020-07-21] MEDS ORDERED: CARBOPROST TROMETHAMINE 250 MCG/1 ML INJ IM ONE (06:12)
--- NOTE | 2020-07-21 07:11 | Procedure Note ---
OB Delivery Note - Delivery Date of Delivery: 07/21/20 Surgeon: ROBERT BELLO Estimated blood loss: 100cc (122mL) - Vaginal Delivery presentation: vertex Delivery induction: other (Cervidil x3, cytotec 25mcg x1, Cervical balloon, AROM) Delivery augmentation: rupture of membranes Delivery monitor: external FHT, external uterine, internal FHT, internal uterine Route of delivery: Delivery placenta: spontaneous (intact) Episiotomy: none Delivery laceration: 1st degree (Left posterior vagina, repair with 2-0 Vicryl usually fashion. ) Delivery repair: vicryl Anesthesia: epidural - Infant A at 1 minute: 8 Gender: Male (7 lbs 7 oz.)
[2020-07-21] MEDS ORDERED: WITCH HAZEL/ GLYCERIN PAD TP PRN (10:04)
[2020-07-21] MEDS ORDERED: LANOLIN/ZINC/DIMETHICONE (LANSINOH) 7 GM TP PRN (10:04)
[2020-07-21] MEDS ORDERED: PROMETHAZINE 25 MG RECT SUPP PR PRN (10:04)
[2020-07-21] MEDS ORDERED: PROMETHAZINE 25 MG TAB PO PRN (10:04)
[2020-07-21] MEDS ORDERED: diphenhydrAMINE 25 MG CAP PO PRN (10:04)
[2020-07-21] MEDS ORDERED: MAGNESIUM HYDROXIDE (MOM) ORAL LIQD UDC PO PRN (10:04)
[2020-07-21] MEDS ORDERED: ONDANSETRON 4 MG/2 ML INJ IV PRN (10:04)
[2020-07-21] MEDS: IBUPROFEN 600 MG TAB PO SCH ×3 (10:34→23:37)
--- NOTE | 2020-07-21 13:01 | Post Anesthesia Evaluation ---
- Post Anesthesia Evaluation Patient Participated: Yes Airway Patent: Yes Stable Respiratory Function: Yes Nausea/Vomiting: No Temp > 96.8F: Yes Pain Manageable: Yes Adequeate Hydration: Yes Anesthesia Complications: No Block Receding Appropriately: Yes Patient on Ventilator: No Other Comments: Patient states she still has some numbness in her L foot, likely from stirrups. Patient counseled that it should resolve on its own, but that I would re visit her tomorrow to check her status.
[2020-07-21 18:36] LABS: Hematocrit 25.4 % (30.3-42.9); Hemoglobin 8.4 gm/dl (10.1-14.3)
[2020-07-22] MEDS: IBUPROFEN 600 MG TAB PO SCH ×2 (05:35→11:05)
--- NOTE | 2020-07-22 06:05 | Discharge Summary ---
Providers - Providers Date of Admission: 07/17/20 20:12 Date of discharge: 07/22/20 (pt desires d/c) Attending physician: EVELIA AGUILAR 07/21/20 10:04 Consult to Vehicle [employer] Manager [CONS] Routine Reason For Exam: assistance with , SNS Primary care physician: EVELIA AGUILAR Hospitalization Reason for admission: induction of labor Delivery: Episiotomy: none Laceration: none Incision: normal Other procedures: none complications: none Discharge diagnosis: IUP at term delivered Candor baby: male (will call to schedule circumcision) Hospital course: uncomplicated vaginal delivery successful IOL Pt in good spirits Wants to go home is her NB is d/c also. BP 120-110/80-70 denies SAMAYOA, blurred vision, chest pain. H&H 10/22 pt is w/o s/sx of anemia. Doing well s/p P: d/c home today f/u 1 week circ and BP check Depo @ d/c Pt desires tubal for permanent BC Condition at discharge: Good Disposition: DC-01 TO HOME OR SELFCARE - Discharge Diagnoses (1) HTN (hypertension) Status: Acute Qualifiers: Hypertension type: essential hypertension Qualified Code(s): I10 - Essential (primary) hypertension Comment: BP check in office 1 week (2) Spontaneous vaginal delivery Status: Acute Comment: RTO 4 weeks PP Care Plan - Discharge Medications Prescriptions: Lidocain2.5%/Prilocai2.5% [Emla] 1 applic TP ONCE #1 tube Ibuprofen [Motrin] 800 mg PO Q8HR PRN #30 tablet PRN Reason: Pain, Moderate (4-6) - Provider Discharge Summary Activity: routine, no sex for 6 weeks, no heavy lifting 4 weeks, no strenuous exercise Diet: routine Instructions: routine Additional instructions: [] Smoking cessation referral if applicable(refer to patient education folder for contact #) [] Refer to [facility] Booklet Call your doctor immediately for: * Fever > 100.5 * Heavy vaginal bleeding ( >1 pad per hour) * Severe persistent headache * Shortness of breath * Reddened, hot, painful area to leg or breast * Drainage or odor from incision. * Keep incision clean and dry at all times and follow doctor's instructions regarding bathing/showering - Follow up plan Follow up: EVELIA AGUILAR MD [Primary Care Provider] - 08/21/20 (Congratulations! Please call [phone] to schedule your visit in 4 weeks and your son's circumcision in 1 week. You will have a blood pressure check at his visit. Bring the EMLA cream with you to his visit. Do not use at home. Take medication as instructed. Continue over the counter iron QD, increase iron rich foods, green leafy vegatables, raisins, meat. Call with any headache, not relieved with Tylenol, blurred vision, chest pain. Call with any concerns.)
[2020-07-22] MEDS ORDERED: TETANUS,DIPH,PERTUSS(ACELL) VACCINE 0.5 ML SYRINGE IM ONE (06:58)
[2020-07-22] MEDS ORDERED: FERROUS SULFATE 325 MG TAB PO SCH (10:00)
[2020-07-22 15:21] VITALS: BP 149/70
== END 2020-07-22 15:35 | disposition home or self-care (01) | DRG 806 ==
LOC: LD 20:12 → OB 07-21 10:01
PROVIDERS: ADMIT Obstetrics & Gynecology; ATTEND Obstetrics & Gynecology
PROC: 3E0R3BZ Introduction of Anesthetic Agent into Spinal Canal, Percutaneous Approach (ICD-10-PCS; 2020-07-20)
PROC: 3E0P7VZ Introduction of Hormone into Female Reproductive, Via Natural or Artificial Opening (ICD-10-PCS; 2020-07-20)
PROC: 0U7C7ZZ Dilation of Cervix, Via Natural or Artificial Opening (ICD-10-PCS; 2020-07-20)
PROC: 00HU33Z Insertion of Infusion Device into Spinal Canal, Percutaneous Approach (ICD-10-PCS; 2020-07-20)
PROC: 10E0XZZ Delivery of Products of Conception, External Approach (ICD-10-PCS; principal; 2020-07-21)
PROC: 10907ZC Drainage of Amniotic Fluid, Therapeutic from Products of Conception, Via Natural or Artificial Opening (ICD-10-PCS; 2020-07-21)
PROC: 0HQ9XZZ Repair Perineum Skin, External Approach (ICD-10-PCS; 2020-07-21)
DX: O10.92 Unspecified pre-existing hypertension complicating childbirth (principal); O99.12 Other diseases of the blood and blood-forming organs and certain disorders involving the immune mechanism complicating childbirth; Z37.0 Single live birth; O99.214 Obesity complicating childbirth; Z20.822 Contact with and (suspected) exposure to COVID-19; O99.52 Diseases of the respiratory system complicating childbirth; D69.6 Thrombocytopenia, unspecified; Z3A.37 37 weeks gestation of pregnancy; Z86.16 Personal history of COVID-19; Z23 Encounter for immunization; O99.02 Anemia complicating childbirth; D50.0 Iron deficiency anemia secondary to blood loss (chronic)
CPT/HCPCS: 36415; 59200; 76815; 81001; 82565; 83615; 84450; 84460; 84550; 85014; 85018; 85027; 86592; 86850; 86900; 86901; G0378; J2590; J7030; J7120; U0003